=== PATIENT | female | born 1980 | race Caucasian/White ===

== ENCOUNTER 2017-01-24 21:05 | Emergency (ER) | payer OTHER ==
--- NOTE | 2017-01-24 21:26 | ED ---
General Adult HPI - General Chief complaint: Chest Pain Stated complaint: Chest Pain Source: patient, family, RN notes reviewed, old records reviewed Mode of arrival: wheelchair Limitations: no limitations - History of Present Illness Initial comments: This is a 28-year-old female here with severe pain chest pain or bowel pain. History of sudden vomiting syndrome history of vomiting. History of abdominal pain or chest pain. This Dopp is rating the patient's chest. Patient has history of multiple abdominal surgeries. No fevers. No diarrhea. Symptoms happened tonight progressively worsening - Related Data Home Medications Medication Instructions Recorded Confirmed ALPRAZolam [Xanax] 0.5 mg PO TID PRN 01/24/17 01/24/17 Ibuprofen [Motrin] 800 mg PO TID PRN 01/24/17 01/24/17 Allergies Allergy/AdvReac Type Severity Reaction Status Date / Time ceftriaxone [From Rocephin] Allergy Anaphylaxis Verified 01/24/17 21:52 hydromorphone [From Dilaudid] Allergy Anaphylaxis Verified 01/24/17 21:52 Review of Systems ROS Statement: Those systems with pertinent positive or pertinent negative responses have been documented in the HPI. ROS Other: All systems not noted in ROS Statement are negative. Past Medical History Past Medical History: Asthma, Thyroid Disorder Additional Past Medical History / Comment(s): hiatal hernia, Hashimotos History of Any Multi-Drug Resistant Organisms: None Reported Past Surgical History: Section, Cholecystectomy, Tonsillectomy, Tubal Ligation Past Anesthesia/Blood Transfusion Reactions: No Reported Reaction, Motion Sickness, Postoperative Nausea & Vomiting (PONV) Past Psychological History: Anxiety, Depression Smoking Status: Never smoker Past Alcohol Use History: None Reported Additional Past Alcohol Use History / Comment(s): Patient is a lifelong nonsmoker. She denies any medical marijuana, marijuana, street drug use. She lives at home with her and 3 daughters. They're are 2 dogs, 3 cats, one rabbit, 2 guinea pigs, fish and hermit crabs at home which she cares for. She denies any recent travel. Past Drug Use History: None Reported - Past Family History Mother Family Medical History: Cancer General Exam Limitations: no limitations General appearance: alert, in no apparent distress, anxious Head exam: Present: atraumatic, normocephalic, normal inspection Eye exam: Present: normal appearance, PERRL, EOMI. Absent: scleral icterus, conjunctival injection, periorbital swelling ENT exam: Present: normal exam, mucous membranes moist Neck exam: Present: normal inspection. Absent: tenderness, meningismus, lymphadenopathy Respiratory exam: Present: normal lung sounds bilaterally. Absent: respiratory distress, wheezes, rales, rhonchi, stridor Cardiovascular Exam: Present: regular rate, normal rhythm, normal heart sounds. Absent: systolic murmur, diastolic murmur, rubs, gallop, clicks GI/Abdominal exam: Present: soft, normal bowel sounds. Absent: distended, tenderness, guarding, rebound, rigid Extremities exam: Present: normal inspection, full ROM, normal capillary refill. Absent: tenderness, pedal edema, joint swelling, calf tenderness Back exam: Present: normal inspection Neurological exam: Present: alert, oriented X3, CN II-XII intact Psychiatric exam: Present: normal affect, normal mood Skin exam: Present: warm, dry, intact, normal color. Absent: rash Course Vital Signs 01/24/17 01/24/17 21:06 22:01 Temperature 97.4 F L Pulse Rate 81 58 L Respiratory 20 18 Rate Blood Pressure 138/75 125/84 O2 Sat by Pulse 100 99 Oximetry - Reevaluation(s) Reevaluation #1: 01/24/17 22:04 At this point patient does have pain control EKG Findings - EKG Comments: EKG Findings:: EKG shows normal sinus rhythm rate of 66, MA 40, QRS 94, QTC 423 Medical Decision Making - Medical Decision Making 36 female here for evaluation. Patient comes in here for reevaluation.pain chest pain nausea vomiting. Symptoms are improved lab work is normal patient can be discharged home - Lab Data Result diagrams: 01/24/17 21:21 01/24/17 21:21 Lab Results 01/24/17 01/24/17 01/24/17 Range/Units 21:21 21:21 21:21 WBC 8.0 (3.8-10.6) k/uL RBC 4.99 (3.80-5.40) m/uL Hgb 11.6 (11.4-16.0) gm/dL Hct 37.9 (34.0-46.0) % MCV 75.9 L (80.0-100.0) fL MCH 23.4 L (25.0-35.0) pg MCHC 30.8 L (31.0-37.0) g/dL RDW 14.4 (11.5-15.5) % Plt Count 295 (150-450) k/uL Neutrophils % 51 % Lymphocytes % 37 % Monocytes % 6 % Eosinophils % 2 % Basophils % 1 % Neutrophils # 4.1 (1.3-7.7) k/uL Lymphocytes # 3.0 (1.0-4.8) k/uL Monocytes # 0.5 (0-1.0) k/uL Eosinophils # 0.1 (0-0.7) k/uL Basophils # 0.1 (0-0.2) k/uL Hypochromasia Moderate Microcytosis Slight PT (9.0-12.0) sec INR (<1.1) APTT (22.0-30.0) sec D-Dimer (<0.60) mg/L FEU Sodium 143 (137-145) mmol/L Potassium 4.3 (3.5-5.1) mmol/L Chloride 106 (98-107) mmol/L Carbon Dioxide 26 (22-30) mmol/L Anion Gap 11 mmol/L BUN 13 (7-17) mg/dL Creatinine 0.80 (0.52-1.04) mg/dL Est GFR (MDRD) Af Amer >60 (>60 ml/min/1.73 sqM) Est GFR (MDRD) Non-Af >60 (>60 ml/min/1.73 sqM) Glucose 82 (74-99) mg/dL Calcium 9.3 (8.4-10.2) mg/dL Magnesium 2.0 (1.6-2.3) mg/dL Total Bilirubin 0.3 (0.2-1.3) mg/dL AST 17 (14-36) U/L ALT 27 (9-52) U/L Alkaline Phosphatase 68 (38-126) U/L Total Creatine Kinase 77 (30-135) U/L CK-MB (CK-2) 1.0 (0.0-2.4) ng/mL CK-MB (CK-2) Rel Index 1.3 Troponin I <0.012 (0.000-0.034) ng/mL Total Protein 7.2 (6.3-8.2) g/dL Albumin 4.0 (3.5-5.0) g/dL Lipase 174 (23-300) U/L 01/24/17 Range/Units 21:21 WBC (3.8-10.6) k/uL RBC (3.80-5.40) m/uL Hgb (11.4-16.0) gm/dL Hct (34.0-46.0) % MCV (80.0-100.0) fL MCH (25.0-35.0) pg MCHC (31.0-37.0) g/dL RDW (11.5-15.5) % Plt Count (150-450) k/uL Neutrophils % % Lymphocytes % % Monocytes % % Eosinophils % % Basophils % % Neutrophils # (1.3-7.7) k/uL Lymphocytes # (1.0-4.8) k/uL Monocytes # (0-1.0) k/uL Eosinophils # (0-0.7) k/uL Basophils # (0-0.2) k/uL Hypochromasia Microcytosis PT 10.2 (9.0-12.0) sec INR 1.0 (<1.1) APTT 18.7 L (22.0-30.0) sec D-Dimer 0.47 (<0.60) mg/L FEU Sodium (137-145) mmol/L Potassium (3.5-5.1) mmol/L Chloride (98-107) mmol/L Carbon Dioxide (22-30) mmol/L Anion Gap mmol/L BUN (7-17) mg/dL Creatinine (0.52-1.04) mg/dL Est GFR (MDRD) Af Amer (>60 ml/min/1.73 sqM) Est GFR (MDRD) Non-Af (>60 ml/min/1.73 sqM) Glucose (74-99) mg/dL Calcium (8.4-10.2) mg/dL Magnesium (1.6-2.3) mg/dL Total Bilirubin (0.2-1.3) mg/dL AST (14-36) U/L ALT (9-52) U/L Alkaline Phosphatase (38-126) U/L Total Creatine Kinase (30-135) U/L CK-MB (CK-2) (0.0-2.4) ng/mL CK-MB (CK-2) Rel Index Troponin I (0.000-0.034) ng/mL Total Protein (6.3-8.2) g/dL Albumin (3.5-5.0) g/dL Lipase (23-300) U/L - Radiology Data Radiology results: report reviewed (Chest x-ray is negative for acute disease), image reviewed Disposition Clinical Impression: Abdominal pain, Intractable nausea and vomiting Disposition: HOME SELF-CARE Condition: Good Instructions: Abdominal Pain (ED), Acute Nausea and Vomiting (ED) Referrals: Bob Velez III, MD [Primary Care Provider] - 1-2 days
[2017-01-24] MEDS ORDERED: LORazepam 2 MG/ML SYRINGE IV STA (21:39)
[2017-01-24] MEDS ORDERED: HYDROmorphone 2 MG/ML 1 ML SYRINGE IVP STA ×2 (21:39→22:48)
[2017-01-24 21:41] LABS: Basophils # (A) 0.1 k/uL (0-0.2); Basophils % (A) 1 %; CH 23.1; CHCM 30.5; Eosinophils # (A) 0.1 k/uL (0-0.7); Eosinophils % (A) 2 %; HCT 37.9 % (34.0-46.0); HDW 2.34; HGB 11.6 gm/dL (11.4-16.0); Hypochromasia Moderate; Luc # (Auto) 0.26; Luc % (Auto) 3; Lymphocytes % (A) 37 %; MCH 23.4 pg (25.0-35.0); MCHC 30.8 g/dL (31.0-37.0); MCV 75.9 fL (80.0-100.0); Mean Platelet Volume 6.8; Microcytosis Slight; Monocytes # (A) 0.5 k/uL (0-1.0); Monocytes % (A) 6 %; Neutrophils # (A) 4.1 k/uL (1.3-7.7); Neutrophils % (A) 51 %; RBC 4.99 m/uL (3.80-5.40); RDW 14.4 % (11.5-15.5); WBC (Perox) 8.24
[2017-01-24 21:47] LABS: ALT 27 U/L (9-52); AST 17 U/L (14-36); Alkaline Phosphatase 68 U/L (38-126); Anion Gap 11 mmol/L; Blood Urea Nitrogen 13 mg/dL (7-17); Calcium 9.3 mg/dL (8.4-10.2); Carbon Dioxide 26 mmol/L (22-30); Chloride 106 mmol/L (98-107); Glucose 82 mg/dL (74-99); Non-African American GFR(MDRD) >60 (>60 ml/min/1.73 sqM); Potassium 4.3 mmol/L (3.5-5.1); Sodium 143 mmol/L (137-145); Total Bilirubin 0.3 mg/dL (0.2-1.3); Total Protein 7.2 g/dL (6.3-8.2)
--- NOTE | 2017-01-24 21:50 | XR ---
EXAMINATION TYPE: XR chest 2V DATE OF EXAM: 01/24/2017 9:44 PM COMPARISON: 07/04/2015 HISTORY: Chest pain TECHNIQUE: Frontal and lateral views of the chest are obtained. FINDINGS: There is a large hiatal hernia. Lungs are clear. There is no heart failure. There are no h ilar masses. There is no pleural effusion. IMPRESSION: Large hiatal hernia. No active cardiopulmonary disease. No change.
[2017-01-24 21:52] LABS: Prothrombin Time 10.2 sec (9.0-12.0)
[2017-01-24 21:59] LABS: Partial Thromboplastin Time 18.7 sec (22.0-30.0)
[2017-01-24 22:02] LABS: Creatine Kinase 77 U/L (30-135)
[2017-01-24 22:13] LABS: Troponin I <0.012 ng/mL (0.000-0.034)
[2017-01-24] MEDS ORDERED: HYDROmorphone 1 MG/ML 1 ML SYRINGE IVP STA (22:48)
[2017-01-24] MEDS ORDERED: NALOXONE 0.4 MG/ML 1 ML VIAL IV STA (22:49)
[2017-01-24] MEDS ORDERED: ONDANSETRON 4 MG/2 ML VIAL IVP STA (23:33)
[2017-01-25] MEDS ORDERED: diphenhydrAMINE 50 MG/ML 1 ML VIAL IVP STA (00:07)
[2017-01-25 00:39] VITALS: BP 96/54; PULSE 61; RESP 18; TEMP 98
== END 2017-01-25 00:38 | disposition home or self-care (01) ==
LOC: EC 21:05
DX: R11.2 Nausea with vomiting, unspecified (principal); R10.9 Unspecified abdominal pain; R07.9 Chest pain, unspecified; Z88.1 Allergy status to other antibiotic agents; Z88.5 Allergy status to narcotic agent
CPT/HCPCS: 36415; 93005; 85379; 80053; 82550; 82553; 83690; 83735; 84484; 85025; 85610; 85730; 71020; 99285; 96374; 96375 ×4; 96376; J2060; J1170; J1200; J2310; J2405

== ENCOUNTER 2017-06-03 10:02 | Day surgery (SDC) | payer OTHER ==
[2017-06-01 13:28] VITALS: BMI 35.5
[~2017-06-03 10:02] MED LIST: LACTATED RINGERS 1,000 ML IV SCH
[2017-06-03 10:28] VITALS: RESP 16; TEMP 99
[2017-06-03] MEDS ORDERED: LIDOCAINE 1% 20 ML VIAL (10MG/ML) FOR IV START INTRADERMA ONE (10:32)
[2017-06-03] MEDS ORDERED: ONDANSETRON 4 MG/2 ML VIAL IVP ONE (10:35)
[2017-06-03] MEDS ORDERED: LIDOCAINE 1% INJ 10MG/ML (20 ML MDV) ONE (10:58)
[2017-06-03] MEDS ORDERED: PROPOFOL 10 MG/ML 20 ML VIAL IV ONE (10:58)
--- NOTE | 2017-06-03 11:29 | P.PCN ---
Date of Procedure: 06/03/17 Procedure(s) Performed: Procedure: Esophagogastroduodenoscopy and biopsy. Preoperative diagnosis: Chronic reflux symptoms and left upper quadrant abdominal pains. Postoperative diagnosis: 1. Moderately sized hiatal hernia with no obvious esophagitis or complicated reflux disease. 2. Mild antral gastritis. 3. Multiple biopsies obtained from the duodenum, antrum and esophagus. Preparation sedation: Were provided by anesthesia. Brief clinical history: The patient is a 37-year-old female who is referred for this evaluation because of chronic reflux symptoms and left upper quadrant abdominal pain. The patient has chronic reflux symptoms and has been on treatment for several years. She had 2 prior upper endoscopies 3 and 6 years ago. She has no alarm symptoms. This evaluation is requested to assess the degree of her esophagitis and rule out complicated reflux disease or other pathology. Procedure: With the patient on her left lateral decubitus position and after informed consent and adequate sedation, I passed the Olympus-GIF 160 video upper endoscope through the cricopharyngeus down the esophagus. GE junction was around 36 cm from the incisors and there was a moderately sized hiatal hernia with a paraesophageal component. The esophagus did not show any definite esophagitis. There were no strictures or Burk's esophagus. The endoscope was then passed into the stomach which was insufflated with air and inspected in detail including the retroflex view in the cardia. There was some mottling and erythema in the antrum but no ulcers or erosions. Pyloric channel , duodenal bulb, post bulbar area and descending duodenum appeared within normal limits. Because of her symptoms, I obtained biopsies from the duodenum, antrum and esophagus then the endoscope was withdrawn. The patient tolerated the procedure well. Plan: The patient was reassured. Will await biopsy results. She will follow- up with you as planned and I would be happy to see in follow-up if her symptoms persist. I am not certain of the component of her symptoms that could be related to her hiatal hernia and into the thoracic portion of of her stomach.
[2017-06-03 11:41] VITALS: BP 92/55; PULSE 57
== END 2017-06-03 12:28 | disposition home or self-care (01) ==
LOC: ORWHC2ENDO 10:02
DX: K29.50 Unspecified chronic gastritis without bleeding (principal); K44.9 Diaphragmatic hernia without obstruction or gangrene; K21.0 Gastro-esophageal reflux disease with esophagitis; J45.909 Unspecified asthma, uncomplicated; Z79.899 Other long term (current) drug therapy; Z88.1 Allergy status to other antibiotic agents
CPT/HCPCS: 81025; 88305; 88342; 43239; J2405; J2001; J2704

== ENCOUNTER 2018-11-14 22:24 | Emergency (ER) | payer BC, OTHER ==
[2018-11-14 23:40] LABS: Basophils % (A) 1 %; Eosinophils # (A) 0.1 k/uL (0-0.7); Eosinophils % (A) 2 %; HCT 37.8 % (34.0-46.0); HGB 11.9 gm/dL (11.4-16.0); Hypochromasia Slight; Lymphocytes # (A) 2.3 k/uL (1.0-4.8); Lymphocytes % (A) 34 %; MCH 24.4 pg (25.0-35.0); MCHC 31.6 g/dL (31.0-37.0); MCV 77.1 fL (80.0-100.0); Mean Platelet Volume 5.9; Monocytes # (A) 0.4 k/uL (0-1.0); Monocytes % (A) 6 %; Neutrophils # (A) 3.8 k/uL (1.3-7.7); Neutrophils % (A) 56 %; Platelet Count 246 k/uL (150-450); RDW 14.1 % (11.5-15.5); WBC 6.9 k/uL (3.8-10.6)
[2018-11-14 23:47] LABS: ALT 29 U/L (9-52); AST 20 U/L (14-36); Albumin 3.8 g/dL (3.5-5.0); Alkaline Phosphatase 59 U/L (38-126); Anion Gap 9 mmol/L; Blood Urea Nitrogen 15 mg/dL (7-17); Calcium 9.5 mg/dL (8.4-10.2); Carbon Dioxide 24 mmol/L (22-30); Chloride 107 mmol/L (98-107); Glucose 82 mg/dL (74-99); Magnesium 1.8 mg/dL (1.6-2.3); Sodium 140 mmol/L (137-145); Total Bilirubin 0.3 mg/dL (0.2-1.3); Total Protein 6.9 g/dL (6.3-8.2)
[2018-11-14 23:55] LABS: D-Dimer 0.3 mg/L FEU (<0.60); INR 0.9 (<1.2); Partial Thromboplastin Time 23.3 sec (22.0-30.0)
--- NOTE | 2018-11-15 00:05 | ED ---
Chest Pain HPI - General Chief Complaint: Chest Pain Stated Complaint: Chest pain & SOB Time Seen by Provider: 11/14/18 23:02 Source: patient Mode of arrival: ambulatory Limitations: no limitations - History of Present Illness Initial Comments: This patient is a 38-year-old woman who presents to be evaluated for substernal chest pain. Patient states that he is an aching pain, and feels like someone had struck her. She states pain is constant, moderate intensity. Pain does get worse with movements. No relieving factors. No anginal symptoms associated with it. MD Complaint: chest pain Onset/Timin -: hour(s) Onset: during rest Pain Location: substernal Pain Radiation: none Severity: moderate Quality: aching Consistency: constant Improves With: nothing Worsens With: nothing Treatments Prior to Arrival: none - Related Data Home Medications Medication Instructions Recorded Confirmed Amitriptyline HCl [Elavil] 50 mg PO HS 11/14/18 11/14/18 Gabapentin [Neurontin] 300 mg PO DAILY 11/14/18 11/14/18 Hydroxychloroquine Sulfate 200 mg PO DAILY 11/14/18 11/14/18 [Plaquenil] Ibuprofen [Motrin] 800 mg PO BID 11/14/18 11/14/18 chlordiazePOXIDE/CLIDINIUM BR 1 cap PO TID 11/14/18 11/14/18 [Librax] Allergies Allergy/AdvReac Type Severity Reaction Status Date / Time ceftriaxone [From Rocephin] Allergy Anaphylaxis Verified 11/14/18 22:56 Review of Systems ROS Statement: Those systems with pertinent positive or pertinent negative responses have been documented in the HPI. ROS Other: All systems not noted in ROS Statement are negative. Constitutional: Denies: fever, chills Respiratory: Denies: cough, dyspnea Cardiovascular: Reports: chest pain. Denies: palpitations, dyspnea on exertion, orthopnea, edema, syncope Gastrointestinal: Denies: abdominal pain, vomiting, diarrhea Genitourinary: Denies: dysuria, hematuria Musculoskeletal: Denies: back pain Skin: Denies: rash Neurological: Denies: headache, weakness, numbness EKG Findings - EKG Comments: EKG Findings:: Possible old lateral infarct. - EKG Results: EKG: interpreted by SALEEM, sinus rhythm (Rate 83 bpm), normal axis, normal ST/T Past Medical History Past Medical History: Asthma, Thyroid Disorder Additional Past Medical History / Comment(s): hiatal hernia, Hashimotos History of Any Multi-Drug Resistant Organisms: None Reported Past Surgical History: Section, Cholecystectomy, Tonsillectomy, Tubal Ligation Past Anesthesia/Blood Transfusion Reactions: Motion Sickness, Postoperative Nausea & Vomiting (PONV) Past Psychological History: Anxiety, Depression Smoking Status: Never smoker Past Alcohol Use History: None Reported Past Drug Use History: None Reported - Past Family History Mother Family Medical History: Cancer General Exam Limitations: no limitations General appearance: alert, in no apparent distress Head exam: Present: atraumatic, normocephalic Eye exam: Present: normal appearance. Absent: scleral icterus, conjunctival injection ENT exam: Present: normal oropharynx Neck exam: Present: normal inspection, full ROM. Absent: tenderness, meningismus Respiratory exam: Present: normal lung sounds bilaterally, chest wall tenderness. Absent: respiratory distress, wheezes, rales, rhonchi, stridor Cardiovascular Exam: Present: regular rate, normal rhythm, normal heart sounds. Absent: systolic murmur, diastolic murmur, rubs, gallop GI/Abdominal exam: Present: soft. Absent: distended, tenderness, guarding, rebound, rigid Extremities exam: Present: normal inspection, normal capillary refill. Absent: pedal edema, calf tenderness Back exam: Present: normal inspection. Absent: CVA tenderness (R), CVA tenderness (L) Neurological exam: Present: alert Skin exam: Present: warm, dry, intact, normal color. Absent: rash Course Vital Signs 11/14/18 11/15/18 11/15/18 22:28 00:08 01:13 Temperature 97.9 F Pulse Rate 88 75 88 Respiratory 18 16 18 Rate Blood Pressure 109/79 106/70 117/87 O2 Sat by Pulse 100 99 99 Oximetry 11/15/18 01:50 Temperature 98.5 F Pulse Rate 83 Respiratory 17 Rate Blood Pressure 114/85 O2 Sat by Pulse 100 Oximetry Disposition Clinical Impression: Chest pain, Hiatal hernia Disposition: HOME SELF-CARE Condition: Good Instructions (If sedation given, give patient instructions): Chest Pain (ED) Is patient prescribed a controlled substance at d/c from ED?: No Referrals: Bob Velez III, MD [Primary Care Provider] - 1-2 days
--- NOTE | 2018-11-15 00:52 | XR ---
History: ITS.REASON XR Reason: Chest Pain Exam: XR CXR 2 VIEWS Comparison: 01/24/2017 FINDINGS: The lungs are clear. Large hiatal hernia containing air-fluid level again noted. The cardiac silhouette is within limits for size. Status post apparent cholecystectomy again noted. The visualized osseous structures appear within limits. IMPRESSION: No evidence of acute disease. Large hiatal hernia containing air-fluid level again noted. Status post apparent cholecystectomy again noted.
[2018-11-15 01:52] VITALS: BP 114/85; PULSE 83; RESP 17; TEMP 98.5
== END 2018-11-15 01:51 | disposition home or self-care (01) ==
LOC: EC 22:24
DX: R07.2 Precordial pain (principal); K44.9 Diaphragmatic hernia without obstruction or gangrene; F32.9 Major depressive disorder, single episode, unspecified; F41.9 Anxiety disorder, unspecified; Z79.1 Long term (current) use of non-steroidal anti-inflammatories (NSAID); Z79.899 Other long term (current) drug therapy; Z88.1 Allergy status to other antibiotic agents; Z90.49 Acquired absence of other specified parts of digestive tract
CPT/HCPCS: 36415; 71046; 80053; 83735; 84484; 85025; 85379; 85610; 85730; 99285

== ENCOUNTER 2019-09-27 10:34 | Day surgery (SDC) | payer BC ==
[2019-09-26 08:28] VITALS: BMI 38.7
[~2019-09-27 10:34] MED LIST changes: +LIDOCAINE 1% 20 ML VIAL (10MG/ML) FOR IV START INTRADERMA PRN
[2019-09-27 10:51] VITALS: RESP 16; TEMP 98.5
[2019-09-27] MEDS ORDERED: GLYCOPYRROLATE 0.2 MG/ML 2 ML VIAL ONE (11:37)
[2019-09-27] MEDS ORDERED: LIDOCAINE 1% INJ 10MG/ML (20 ML MDV) ONE (11:37)
[2019-09-27] MEDS ORDERED: fentaNYL (PF) 50 MCG/ML 2 ML AMP ONE (11:37)
[2019-09-27] MEDS ORDERED: PROPOFOL 10 MG/ML 20 ML VIAL IV ONE (11:37)
[2019-09-27] MEDS ORDERED: MIDAZOLAM 2 MG/2 ML VIAL ONE (11:37)
--- NOTE | 2019-09-27 11:44 | P.GSHP ---
History of Present Illness H&P Date: 09/27/19 Chief Complaint: Dysphasia, iron deficiency anemia, GERD Patient or today for upper and lower endoscopy. Patient with history of chronic reflux and intermittent dysphagia for the last 1 year. Patient told she was deficient anemic. He was told she needed upper and lower endoscopy. Denies rectal bleeding or melena. No family history of colon cancer Past Medical History Past Medical History: Asthma, Fibromyalgia, Osteoarthritis (OA), Rheumatoid Arthritis (RA), Thyroid Disorder Additional Past Medical History / Comment(s): Hashimotos, anemia, Hx of sepsis., stomach pains. History of Any Multi-Drug Resistant Organisms: None Reported Past Surgical History: Section, Cholecystectomy, Tonsillectomy, Tubal Ligation Past Anesthesia/Blood Transfusion Reactions: No Reported Reaction, Motion Sickness Past Psychological History: Anxiety, Depression Smoking Status: Never smoker Past Alcohol Use History: None Reported Additional Past Alcohol Use History / Comment(s): . Past Drug Use History: None Reported - Past Family History Mother Family Medical History: Cancer Additional Family Medical History / Comment(s): breast & skin cancer Medications and Allergies Home Medications Medication Instructions Recorded Confirmed Type Amitriptyline HCl [Elavil] 50 mg PO DAILY 11/14/18 09/27/19 History Gabapentin [Neurontin] 300 mg PO HS 11/14/18 09/27/19 History Hydroxychloroquine Sulfate 200 mg PO BID 11/14/18 09/27/19 History [Plaquenil] Ibuprofen [Motrin] 800 mg PO DAILY 11/14/18 09/27/19 History Albuterol Inhaler [Ventolin Hfa 1 - 2 puff INHALATION RT-Q6H PRN 09/26/19 09/27/19 History Inhaler] DULoxetine HCL [Cymbalta] 30 mg PO BID 09/26/19 09/27/19 History Ergocalciferol [Vitamin D2] 50,000 unit PO Q7D 09/26/19 09/27/19 History Iron Supplement 1 tab PO DAILY 09/26/19 09/27/19 History Allergies Allergy/AdvReac Type Severity Reaction Status Date / Time ceftriaxone [From Rocephin] Allergy Anaphylaxis Verified 09/26/19 08:08 Surgical - Exam Vital Signs Temp Pulse Resp BP Pulse Ox 98.5 F 97 16 140/79 100 09/27/19 10:49 09/27/19 10:49 09/27/19 10:49 09/27/19 10:49 09/27/19 10:49 Physical exam: General: Well-developed, well-nourished HEENT: Normocephalic, sclerae nonicteric Abdomen: Nontender, nondistended Extremities: No edema Neuro: Alert and oriented Assessment and Plan (1) Iron deficiency anemia Narrative/Plan: Will proceed with upper and lower endoscopy Current Visit: Yes Status: Acute Code(s): D50.9 - IRON DEFICIENCY ANEMIA, UNSPECIFIED SNOMED Code(s): 66217183
--- NOTE | 2019-09-27 12:09 | P.PCN ---
Date of Procedure: 09/27/19 Procedure(s) Performed: PREOPERATIVE DIAGNOSIS: GERD, dysphagia, iron deficiency anemia POSTOPERATIVE DIAGNOSIS: Gastritis, moderate to large sized hiatal hernia, normal colon PROCEDURE: 1. EGD with biopsy 2. Colonoscopy ANESTHESIA: MAC SURGEON: José Torres M.D. SPECIMENS: Antrum ENDOSCOPIC PROCEDURE: The patient was on the endoscopy table in the left decubitus position. The Olympus gastroscope was inserted into the oropharynx and passed under direct visualization to the region of the third portion of the duodenum. From that point the scope was slowly withdrawn inspecting all surfaces carefully. There were no neoplastic inflammatory or polypoid lesions throughout the duodenum. The pylorus was widely patent. The stomach was carefully inspected. There was mild gastritis present. A biopsy of the antrum took place to rule out H. pylori. Retroflexion revealed a moderate to large sized hiatal hernia. The diaphragmatic hiatus was present at 40 cm wall of the GE junction was present at 35 cm. I would estimate 30-40% of the stomach was above the diaphragm. There was mild inflammation in the hernia itself and may have been the source of anemia. The esophagus was then carefully examined. There were no neoplastic inflammatory or polypoid lesions throughout the visualized esophagus. The patient was kept on the endoscopy table in the left decubitus position. The Olympus colonoscope was inserted into the anus and passed under direct visualization to the base of the cecum. The appendiceal orifice was visualized. From that point the scope was slowly withdrawn inspecting all surfaces carefully. There were no neoplastic inflammatory or polypoid lesions throughout the cecum, ascending, transverse, descending, sigmoid and rectum. There was no visible diverticulosis noted. Digital rectal examination was normal. The patient was taken to the recovery room in stable condition per anesthesia guidelines. RECOMMENDATIONS: We'll discuss endoscopic findings with the patient. Patient may benefit from repair hiatal hernia at this point. Await biopsy results. Iron deficiency could be on the basis of this large hernia.
[2019-09-27 12:29] VITALS: BP 122/82; PULSE 81
== END 2019-09-27 12:57 | disposition home or self-care (01) ==
LOC: ORWHC2ENDO 10:34
PROVIDERS: ATTEND Surgery
DX: K29.50 Unspecified chronic gastritis without bleeding (principal); D50.9 Iron deficiency anemia, unspecified; K21.9 Gastro-esophageal reflux disease without esophagitis; K44.9 Diaphragmatic hernia without obstruction or gangrene; M06.9 Rheumatoid arthritis, unspecified; M79.7 Fibromyalgia; J45.909 Unspecified asthma, uncomplicated; F32.9 Major depressive disorder, single episode, unspecified; F39 Unspecified mood [affective] disorder; M19.90 Unspecified osteoarthritis, unspecified site; E07.9 Disorder of thyroid, unspecified; F41.9 Anxiety disorder, unspecified; Z79.1 Long term (current) use of non-steroidal anti-inflammatories (NSAID); Z79.899 Other long term (current) drug therapy; Z88.1 Allergy status to other antibiotic agents; Z90.49 Acquired absence of other specified parts of digestive tract; Z98.51 Tubal ligation status; Z90.89 Acquired absence of other organs; Z86.19 Personal history of other infectious and parasitic diseases; Z80.3 Family history of malignant neoplasm of breast; Z80.8 Family history of malignant neoplasm of other organs or systems
CPT/HCPCS: 81025; 88305; 45378; 43239; J2250; J2001; J3010; J2704

== ENCOUNTER → 2019-10-21 | Outpatient (CLI) | payer BC ==
--- NOTE | 2019-10-22 19:13 | CT ---
EXAMINATION TYPE: CT chest wo con DATE OF EXAM: 10/21/2019 COMPARISON: None HISTORY: Hiatal hernia CT DLP: 698.[address] of the chest was performed with lung and mediastinal window settings submitted. The la ck of contrast limits evaluation of the vascular, mediastinal and parenchymal structures including th e upper abdomen. LUNGS: The lungs are clear and free of infiltrate. No atelectasis. No pulmonary nodule or mass is de tected. No pleural effusion. No CT evidence of interstitial lung disease. MEDIASTINUM/RUY: Thoracic aorta is of normal caliber with limited evaluation given lack of contrast . The heart is not enlarged. No evidence for mediastinal mass. No lymph nodes greater than 1cm. UPPER ABDOMEN: The stomach is virtually entirely intrathoracic in location. OTHER: No significant other abnormality. IMPRESSION: 1. The stomach is virtually entirely intrathoracic in location.
== END ==
LOC: RADCTMAIN 13:31
PROVIDERS: ATTEND Surgery
DX: K44.9 Diaphragmatic hernia without obstruction or gangrene (principal)
CPT/HCPCS: 71250

== ENCOUNTER 2019-12-21 12:22 | Observation (INO) | payer BC ==
[2019-12-21] MEDS ORDERED: ASPIRIN 81 MG PO STA (12:58)
[2019-12-21] MEDS ORDERED: SODIUM CHLORIDE 0.9% 1,000 ML IV STA (12:58)
--- NOTE | 2019-12-21 13:22 | ED ---
General Adult HPI - General Chief complaint: Shortness of Breath Stated complaint: shortness of breath Time Seen by Provider: 12/21/19 12:36 Source: patient, RN notes reviewed, old records reviewed Mode of arrival: ambulatory Limitations: no limitations - History of Present Illness Initial comments: 39-year-old female patient presents to ED for chief complaint of approximately 3 weeks of chest pressure, shortness of breath, very mild coughing. Patient r eports that she has been quite sedentary over this timeframe. Mostly sitting in her chair. Patient reports that when she stands up and exerts herself she becomes short of breath her heart rate becomes elevated at her pulse oximetry level drops reported on the 80s. Patient reports that she has a pulse oximeter at home which she monitors her heart rate and blood oxygenation with. Patient states that her chest pressure substernal in nature, states that it has been persistent and is getting worse with exertion. Denies any other complaints. Denies any prior history of blood clots or cardiac issues. Systemic: Pt denies fatigue, fever/chills, rash. Pt denies weakness, night sweats, weight loss. Neuro: Pt denies headache, visual disturbances, syncope or pre-syncope. HEENT: Pt denies ocular discharge or irritation, otalgia, rhinorrhea, pharyngitis or notable lymphadenopathy. Cardiopulmonary: Pt denies heart palpitations, dyspnea on exertion. Abdominal/GI: Pt denies abdominal pain, n/v/d. : Pt denies dysuria, burning w/ urination, frequency/urgency. Denies new onset urinary or bowel incontinence. MSK: Pt denies myalgia, loss of strength or function in extremities. Neuro: Pt denies new onset weakness, paresthesias. - Related Data Home Medications Medication Instructions Recorded Confirmed Amitriptyline HCl [Elavil] 50 mg PO HS 11/14/18 12/21/19 Gabapentin [Neurontin] 300 mg PO TID PRN 11/14/18 12/21/19 Hydroxychloroquine Sulfate 200 mg PO BID 11/14/18 12/21/19 [Plaquenil] Ibuprofen [Motrin] 800 mg PO DAILY 11/14/18 12/21/19 Albuterol Inhaler (Bulk) [Ventolin 2 puff INHALATION RT-Q6H PRN 09/26/19 12/21/19 Hfa Inhaler] DULoxetine HCL [Cymbalta] 30 mg PO BID 09/26/19 12/21/19 chlordiazePOXIDE/CLIDINIUM BR 1 cap PO AC-TID 12/21/19 12/21/19 [Librax] Allergies Allergy/AdvReac Type Severity Reaction Status Date / Time ceftriaxone [From Rocephin] Allergy Anaphylaxis Verified 12/21/19 14:39 Review of Systems ROS Statement: Those systems with pertinent positive or pertinent negative responses have been documented in the HPI. ROS Other: All systems not noted in ROS Statement are negative. Past Medical History Past Medical History: Asthma, Fibromyalgia, Osteoarthritis (OA), Rheumatoid Arthritis (RA), Thyroid Disorder Additional Past Medical History / Comment(s): Hashimotos, anemia, Hx of sepsis., stomach pains. History of Any Multi-Drug Resistant Organisms: None Reported Past Surgical History: Section, Cholecystectomy, Tonsillectomy, Tubal Ligation Past Anesthesia/Blood Transfusion Reactions: No Reported Reaction, Motion Sickness Past Psychological History: Anxiety, Depression Smoking Status: Never smoker Past Alcohol Use History: None Reported Past Drug Use History: None Reported - Past Family History Mother Family Medical History: Cancer Additional Family Medical History / Comment(s): breast & skin cancer General Exam - General Exam Comments Initial Comments: Constitutional: NAD, AOX3, Pt has pleasant affect. HEENT: NC/AT, trachea midline, neck supple, no lymphadenopathy. Posterior pharynx non erythematous, without exudates. External ears appear normal, without discharge. Mucous membranes moist. Eyes PERRLA, EOM intact. There is no scleral icterus. No pallor noted. Cardiopulmonary: RRR, no murmurs, rubs or gallops, no JVD noted. Lungs CTAB in anterior and posterior lei. No peripheral edema. Abdominal exam: Abdomen soft and non-distended. Abdomen non-tender to palpation in all 4 quadrants. Bowel sounds active in LLQ. No hepatosplenomegaly. No ecch ymosis Neuro: CN II-XII grossly intact. No nuchal rigidity. No raccon eyes, no novak sign, no hemotympanum. No cervical spinal tenderness. MSK: No posterior calf tenderness bilaterally, homans sign negative bilaterally. Posterior tibialis and radial pulse +2 bilaterally. Sensation intact in upper and lower extremities. Full active ROM in upper and lower extremities, 5/5 stregnth. Limitations: no limitations Course Vital Signs 12/21/19 12/21/19 12:24 16:02 Temperature 98.5 F Pulse Rate 101 H 78 Respiratory 18 18 Rate Blood Pressure 117/90 116/70 O2 Sat by Pulse 96 98 Oximetry Medical Decision Making - Medical Decision Making 39-year-old female patient presents to ED for chief complaint of approximately 3 weeks of chest pressure, shortness of breath, very mild coughing. Patient reports that she has been quite sedentary over this timeframe. Mostly sitting in her chair. Patient reports that when she stands up and exerts herself she becomes short of breath her heart rate becomes elevated at her pulse oximetry level drops reported on the 80s. Patient reports that she has a pulse oximeter at home which she monitors her heart rate and blood oxygenation with. Patient states that her chest pressure substernal in nature, states that it has been persistent and is getting worse with exertion. Denies any other complaints. Denies any prior history of blood clots or cardiac issues. Patient also has are stable, afebrile. EKG is nonischemic. Laboratory investigations are obtained, reported negative, d-dimer negative, coronavirus PCR is negative. Chest x-ray doesn't display lactational hernia projector behind the heart. Upon repeat evaluation patient reports that pain has resolved. Patient will be admitted for creatinine evaluation. Case discussed with Dr. Hughes. - Lab Data Result diagrams: 12/21/19 13:34 12/21/19 13:34 Lab Results 12/21/19 12/21/19 12/21/19 Range/Units 13:34 13:34 13:34 WBC 5.7 (3.8-10.6) k/uL RBC 5.34 (3.80-5.40) m/uL Hgb 14.5 (11.4-16.0) gm/dL Hct 45.0 (34.0-46.0) % MCV 84.2 (80.0-100.0) fL MCH 27.1 (25.0-35.0) pg MCHC 32.2 (31.0-37.0) g/dL RDW 13.1 (11.5-15.5) % Plt Count 237 (150-450) k/uL Neutrophils % 64 % Lymphocytes % 26 % Monocytes % 6 % Eosinophils % 2 % Basophils % 1 % Neutrophils # 3.6 (1.3-7.7) k/uL Lymphocytes # 1.5 (1.0-4.8) k/uL Monocytes # 0.3 (0-1.0) k/uL Eosinophils # 0.1 (0-0.7) k/uL Basophils # 0.1 (0-0.2) k/uL PT 10.1 (9.0-12.0) sec INR 1.0 (<1.2) APTT 22.7 (22.0-30.0) sec D-Dimer 0.48 (<0.60) mg/L FEU Sodium 138 (137-145) mmol/L Potassium 4.1 (3.5-5.1) mmol/L Chloride 104 (98-107) mmol/L Carbon Dioxide 28 (22-30) mmol/L Anion Gap 6 mmol/L BUN 10 (7-17) mg/dL Creatinine 0.69 (0.52-1.04) mg/dL Est GFR (CKD-EPI)AfAm >90 (>60 ml/min/1.73 sqM) Est GFR (CKD-EPI)NonAf >90 (>60 ml/min/1.73 sqM) Glucose 87 (74-99) mg/dL Calcium 8.9 (8.4-10.2) mg/dL Magnesium 1.9 (1.6-2.3) mg/dL Total Bilirubin 0.3 (0.2-1.3) mg/dL AST 19 (14-36) U/L ALT 17 (4-34) U/L Alkaline Phosphatase 56 (38-126) U/L Troponin I (0.000-0.034) ng/mL NT-Pro-B Natriuret Pep pg/mL Total Protein 6.7 (6.3-8.2) g/dL Albumin 3.8 (3.5-5.0) g/dL Urine Color Urine Appearance (Clear) Urine pH (5.0-8.0) Ur Specific [place] (1.001-1.035) Urine Protein (Negative) Urine Glucose (UA) (Negative) Urine Ketones (Negative) Urine Blood (Negative) Urine Nitrite (Negative) Urine Bilirubin (Negative) Urine Urobilinogen (<2.0) mg/dL Ur Leukocyte Esterase (Negative) Urine WBC (0-5) /hpf Ur Squamous Epith Cells (0-4) /hpf Urine Bacteria (None) /hpf Urine Mucus (None) /hpf Coronavirus (PCR) (Not Detectd) 12/21/19 12/21/19 12/21/19 Range/Units 13:34 13:34 13:34 WBC (3.8-10.6) k/uL RBC (3.80-5.40) m/uL Hgb (11.4-16.0) gm/dL Hct (34.0-46.0) % MCV (80.0-100.0) fL MCH (25.0-35.0) pg MCHC (31.0-37.0) g/dL RDW (11.5-15.5) % Plt Count (150-450) k/uL Neutrophils % % Lymphocytes % % Monocytes % % Eosinophils % % Basophils % % Neutrophils # (1.3-7.7) k/uL Lymphocytes # (1.0-4.8) k/uL Monocytes # (0-1.0) k/uL Eosinophils # (0-0.7) k/uL Basophils # (0-0.2) k/uL PT (9.0-12.0) sec INR (<1.2) APTT (22.0-30.0) sec D-Dimer (<0.60) mg/L FEU Sodium (137-145) mmol/L Potassium (3.5-5.1) mmol/L Chloride (98-107) mmol/L Carbon Dioxide (22-30) mmol/L Anion Gap mmol/L BUN (7-17) mg/dL Creatinine (0.52-1.04) mg/dL Est GFR (CKD-EPI)AfAm (>60 ml/min/1.73 sqM) Est GFR (CKD-EPI)NonAf (>60 ml/min/1.73 sqM) Glucose (74-99) mg/dL Calcium (8.4-10.2) mg/dL Magnesium (1.6-2.3) mg/dL Total Bilirubin (0.2-1.3) mg/dL AST (14-36) U/L ALT (4-34) U/L Alkaline Phosphatase (38-126) U/L Troponin I <0.012 (0.000-0.034) ng/mL NT-Pro-B Natriuret Pep 28 pg/mL Total Protein (6.3-8.2) g/dL Albumin (3.5-5.0) g/dL Urine Color Yellow Urine Appearance Cloudy H (Clear) Urine pH 5.5 (5.0-8.0) Ur Specific [place] 1.029 (1.001-1.035) Urine Protein 1+ H (Negative) Urine Glucose (UA) Negative (Negative) Urine Ketones Negative (Negative) Urine Blood Negative (Negative) Urine Nitrite Negative (Negative) Urine Bilirubin Negative (Negative) Urine Urobilinogen 2.0 (<2.0) mg/dL Ur Leukocyte Esterase Negative (Negative) Urine WBC 3 (0-5) /hpf Ur Squamous Epith Cells 1 (0-4) /hpf Urine Bacteria Occasional H (None) /hpf Urine Mucus Many H (None) /hpf Coronavirus (PCR) (Not Detectd) 12/21/19 Range/Units 13:50 WBC (3.8-10.6) k/uL RBC (3.80-5.40) m/uL Hgb (11.4-16.0) gm/dL Hct (34.0-46.0) % MCV (80.0-100.0) fL MCH (25.0-35.0) pg MCHC (31.0-37.0) g/dL RDW (11.5-15.5) % Plt Count (150-450) k/uL Neutrophils % % Lymphocytes % % Monocytes % % Eosinophils % % Basophils % % Neutrophils # (1.3-7.7) k/uL Lymphocytes # (1.0-4.8) k/uL Monocytes # (0-1.0) k/uL Eosinophils # (0-0.7) k/uL Basophils # (0-0.2) k/uL PT (9.0-12.0) sec INR (<1.2) APTT (22.0-30.0) sec D-Dimer (<0.60) mg/L FEU Sodium (137-145) mmol/L Potassium (3.5-5.1) mmol/L Chloride (98-107) mmol/L Carbon Dioxide (22-30) mmol/L Anion Gap mmol/L BUN (7-17) mg/dL Creatinine (0.52-1.04) mg/dL Est GFR (CKD-EPI)AfAm (>60 ml/min/1.73 sqM) Est GFR (CKD-EPI)NonAf (>60 ml/min/1.73 sqM) Glucose (74-99) mg/dL Calcium (8.4-10.2) mg/dL Magnesium (1.6-2.3) mg/dL Total Bilirubin (0.2-1.3) mg/dL AST (14-36) U/L ALT (4-34) U/L Alkaline Phosphatase (38-126) U/L Troponin I (0.000-0.034) ng/mL NT-Pro-B Natriuret Pep pg/mL Total Protein (6.3-8.2) g/dL Albumin (3.5-5.0) g/dL Urine Color Urine Appearance (Clear) Urine pH (5.0-8.0) Ur Specific [place] (1.001-1.035) Urine Protein (Negative) Urine Glucose (UA) (Negative) Urine Ketones (Negative) Urine Blood (Negative) Urine Nitrite (Negative) Urine Bilirubin (Negative) Urine Urobilinogen (<2.0) mg/dL Ur Leukocyte Esterase (Negative) Urine WBC (0-5) /hpf Ur Squamous Epith Cells (0-4) /hpf Urine Bacteria (None) /hpf Urine Mucus (None) /hpf Coronavirus (PCR) Not Detected (Not Detectd) - EKG Data -: EKG Interpreted by Me (and Dr. Hughes ) EKG Comments: Ventricular rate 78, when necessary for 144, QRS 104, QT/QTC 392/446. Normal sensory rhythm, normal EKG, no concern for acute ischemia. Disposition Clinical Impression: Chest pain Disposition: ADMITTED IP TO THIS HOSP Condition: Serious Is patient prescribed a controlled substance at d/c from ED?: No Referrals: Nicole Torres MD [Primary Care Provider] - 1-2 days
--- NOTE | 2019-12-21 13:44 | XR ---
EXAMINATION TYPE: XR chest 1V portable DATE OF EXAM: 12/21/2019 Comparison: 11/15/2018 Clinical History: 39-year-old female chest pain Findings: Heart normal size. Aorta and pulmonary vasculature within normal limits. Large hiatal hernia with air -fluid level projecting behind the heart. Hazy peripheral lower lung densities related to overlying s oft tissue. Impression: No definite acute process. Large hiatal hernia projecting behind the heart.
[2019-12-21 13:48] LABS: Basophils # (A) 0.1 k/uL (0-0.2); Basophils % (A) 1 %; Eosinophils # (A) 0.1 k/uL (0-0.7); Eosinophils % (A) 2 %; HGB 14.5 gm/dL (11.4-16.0); Lymphocytes # (A) 1.5 k/uL (1.0-4.8); Lymphocytes % (A) 26 %; MCH 27.1 pg (25.0-35.0); MCHC 32.2 g/dL (31.0-37.0); MCV 84.2 fL (80.0-100.0); Mean Platelet Volume 6.9; Monocytes # (A) 0.3 k/uL (0-1.0); Monocytes % (A) 6 %; Neutrophils # (A) 3.6 k/uL (1.3-7.7); Neutrophils % (A) 64 %; Platelet Count 237 k/uL (150-450); RBC 5.34 m/uL (3.80-5.40); RDW 13.1 % (11.5-15.5); WBC 5.7 k/uL (3.8-10.6)
[2019-12-21 13:54] LABS: Appearance,Urine Cloudy (Clear); Bacteria,Urine Occasional /hpf; Bilirubin,Urine Negative (Negative); Blood,Urine Negative (Negative); Color,Urine Yellow; Glucose,Urine (UA) Negative (Negative); Ketones,Urine Negative (Negative); Leukocyte Esterase,Urine Negative (Negative); Mucus,Urine Many /hpf; Nitrite,Urine Negative (Negative); PH, Urine 5.5 (5.0-8.0); Protein,Urine 1+ (Negative); Specific Gravity,Urine 1.029 (1.001-1.035); Squamous Epithelial Cell,Urine 1 /hpf (0-4); WBC,Urine 3 /hpf (0-5)
[2019-12-21 13:59] LABS: ALT 17 U/L (4-34); AST 19 U/L (14-36); African American GFR (CKD) >90 (>60 ml/min/1.73 sqM); Albumin 3.8 g/dL (3.5-5.0); Alkaline Phosphatase 56 U/L (38-126); Anion Gap 6 mmol/L; Blood Urea Nitrogen 10 mg/dL (7-17); Calcium 8.9 mg/dL (8.4-10.2); Carbon Dioxide 28 mmol/L (22-30); Chloride 104 mmol/L (98-107); Glucose 87 mg/dL (74-99); Magnesium 1.9 mg/dL (1.6-2.3); Non-African American GFR(CKD) >90 (>60 ml/min/1.73 sqM); Potassium 4.1 mmol/L (3.5-5.1); Sodium 138 mmol/L (137-145); Total Bilirubin 0.3 mg/dL (0.2-1.3); Total Protein 6.7 g/dL (6.3-8.2)
[2019-12-21 14:06] LABS: D-Dimer 0.48 mg/L FEU (<0.60); Partial Thromboplastin Time 22.7 sec (22.0-30.0); Prothrombin Time 10.1 sec (9.0-12.0)
[2019-12-21] MEDS ORDERED: NITROGLYCERIN SL TABS 0.4 MG TAB SUBLINGUAL PRN (16:26)
[2019-12-21] MEDS ORDERED: GABAPENTIN 300 MG CAP PO PRN (18:30)
[2019-12-21] MEDS ORDERED: AMITRIPTYLINE HCL 50 MG TAB PO SCH (21:00)
[2019-12-21] MEDS: DULoxetine HCL 30 MG CAPSULE.DR PO SCH (21:06)
[2019-12-22 01:33] VITALS: RESP 18
[2019-12-22 03:43] LABS: Cholesterol 119 mg/dL (<200); HDL Cholesterol 31 mg/dL (40-60); LDL Cholesterol,Calculated 78 mg/dL (0-99); Triglycerides 51 mg/dL (<150)
[2019-12-22] MEDS ORDERED: DOBUTamine DRIP for NUC MED 500 MG in DEXTROSE/WATER 1 250ML.BAG IV ONE (07:58)
[2019-12-22] MEDS ORDERED: PANTOPRAZOLE 40 MG TABLET PO SCH (08:00)
[2019-12-22] MEDS ORDERED: ASPIRIN 325 MG TAB PO SCH (09:00)
[2019-12-22] MEDS ORDERED: HEPARIN SODIUM,PORCINE 5,000 UNIT/ML 1 ML VIAL SQ SCH (09:00)
[2019-12-22] MEDS: DULoxetine HCL 30 MG CAPSULE.DR PO SCH (09:24)
--- NOTE | 2019-12-22 09:51 | CONS ---
CONSULTATION Mrs Hamilton is a 39-year-old female with known history of large hiatal hernia who was evaluated for surgical intervention to repair her hiatal hernia, but it has been postponed because of the peterson virus pandemic who for the last few weeks has been complaining of chest discomfort. The discomfort is not clearly exertional in pattern. It has been constant, associated with some dyspnea and palpitations. The patient is not very active physically because of her history of arthritis. She contacted Dr. Torres yesterday, who has recommended that she come into the emergency room and she was subsequently admitted. The patient has no prior cardiac disease, but no recent cardiac workup. Her coronary risk factors negative for hypertension, hyperlipidemia or smoking. She is nondiabetic. Her medications include Librax, Plaquenil, Neurontin, Cymbalta, Elavil, and Ventolin. REVIEW OF SYSTEMS: RESPIRATORY SYSTEM: She has no documented history of recent wheezing or cough. She has mild asthma. GI SYSTEM: She has the hiatal hernia. No recent GI bleeding. SYSTEM: No dysuria or hematuria. NERVOUS SYSTEM: No stroke or seizure. PHYSICAL EXAMINATION: A 39-year-old female, alert, oriented, in no apparent distress. Blood pressure 107/70 with a heart rate in the 70s. HEAD: Normocephalic. EYES: Sclerae nonicteric. NECK: Good upstroke, no bruit, no venous distension. LUNGS: Clear to auscultation. HEART: Regular rate and rhythm. S1, S2. No S3. No S4. No murmur or rub. ABDOMEN: Soft, nontender, positive bowel sounds, no organomegaly. EXTREMITIES: No edema. Intact distal pulses. LAB DATA: EKG reveals sinus mechanism, normal axis and intervals. Normal electrocardiogram. Chest x-ray shows large hiatal hernia, but no acute infiltrate. Lab data revealed troponin less than 0.012 for 3 samples, cholesterol 119, LDL of 78, BUN and creatinine of 10 and 0.69, potassium 4.1, hemoglobin of 14.5. IMPRESSION: 1. Chest discomfort, appears to be atypical for ischemic heart disease, probably due to the hiatal hernia. 2. History of hiatal hernia. 3. Arthritis. RECOMMENDATION: From the cardiac standpoint, I would recommend to obtain a dobutamine echocardiogram to further evaluate her status and guide her treatment and depending on the results of testing, further recommendation will be made. Thank you for this consult. We will follow with you the. MMODL / IJN: [id number] /
--- NOTE | 2019-12-22 10:54 | ECHOF ---
Referral Reason:chest pain MEASUREMENTS -------- HEIGHT: 167.6 cm WEIGHT: 110.7 kg BP: 107/75 IVSd: 1.0 cm (0.6 - 1.1) LVIDd: 4.9 cm (3.9 - 5.3) LVPWd: 1.1 cm (0.6 - 1.1) IVSs: 1.9 cm LVIDs: 3.0 cm LVPWs: 1.6 cm LAESV Index (A-L): 21.72 ml/m Ao Diam: 3.1 cm (2.0 - 3.7) AV Cusp: 2.2 cm (1.5 - 2.6) LA Diam: 3.3 cm (2.7 - 3.8) MV EXCURSION: 16.312 mm (> 18.000) MV EF SLOPE: 127 mm/s (70 - 150) EPSS: 1.2 cm MV E Biju: 0.74 m/s MV DecT: 219 ms MV A Biju: 0.52 m/s MV E/A Ratio: 1.42 RAP: 5.00 mmHg RVSP: 26.57 mmHg FINDINGS -------- Sinus rhythm. This was a technically adequate study. The left ventricular size is normal. Left ventricular wall thickness is normal. Overall left vent ricular systolic function is normal with, an EF between 55 - 60 %. The diastolic filling pattern is normal for the age of the patient 8.63. The RV was not well visualized. The left atrial size is normal. Normal LA size by volume 22+/-6 ml/m2. The right atrial size is normal. The aortic valve is trileaflet and appears structurally normal. The mitral valve is normal. There is trace mitral regurgitation. The tricuspid valve appears structurally normal. Mild tricuspid regurgitation present. Right vent ricular systolic pressure is normal at < 35 mmHg. There is no pulmonic regurgitation present. The aortic root size is normal. Normal inferior vena cava with normal inspiratory collapse consistent with estimated right atrial pre ssure of 5 mmHg. There is no pericardial effusion. CONCLUSIONS -------- 1. Sinus rhythm. 2. This was a technically adequate study. 3. The left ventricular size is normal. 4. Left ventricular wall thickness is normal. 5. Overall left ventricular systolic function is normal with, an EF between 55 - 60 %. 6. The diastolic filling pattern is normal for the age of the patient 8.63 7. The RV was not well visualized. 8. The left atrial size is normal. 9. Normal LA size by volume 22+/-6 ml/m2. 10. The right atrial size is normal. 11. The aortic valve is trileaflet and appears structurally normal. 12. The mitral valve is normal. 13. There is trace mitral regurgitation. 14. The tricuspid valve appears structurally normal. 15. Mild tricuspid regurgitation present. 16. Right ventricular systolic pressure is normal at < 35 mmHg. 17. There is no pulmonic regurgitation present. 18. The aortic root size is normal. 19. Normal inferior vena cava with normal inspiratory collapse consistent with estimated right atrial pressure of 5 mmHg. 20. There is no pericardial effusion. WELDER ASSISTANT: Stacie Mauro RDCS
[2019-12-22] MEDS: CLIDINIUM-chlordiazePOXIDE (2.5-5 MG) CAP PO SCH ×2 (11:32)
[2019-12-22 11:38] VITALS: PULSE 78
[2019-12-22 11:41] VITALS: BP 108/65; TEMP 98.6
--- NOTE | 2019-12-22 12:03 | ECHOS ---
STRESS ECHOCARDIOGRAM INDICATIONS: Chest pain. BASELINE HEART RATE: 78 BASELINE BLOOD PRESSURE: 120/71 MAXIMUM HEART RATE: 154 MAXIMUM BLOOD PRESSURE: 144/38 85% MPHR: 152 100% MPHR: 179 MAXIMUM STAGE REACHED: 3 TOTAL EXERCISE TIME: 7:00 CLINICAL INFORMATION: Baseline EKG shows sinus rhythm, prior inferolateral myocardial infarction. Patient exercised. Patient was given IV dobutamine over a period of 7 minutes as per protocol, achieving 85% of predicted maximum heart rate without chest pain or diagnostic ST- segment depression. Baseline echo shows normal left ventricular size, wall motion systolic function. Post dobutamine infusion, there is normal hyperdynamic response of myocardium noted. CONCLUSION: 1. Negative stress test by EKG criteria. 2. Negative dobutamine echo. MMODL / IJN: [id number] /
--- NOTE | 2019-12-22 12:50 | P.HPIM ---
History of Present Illness This is combined H&P and discharge summary Diagnoses: chest pain, rule out cardiac causes. Negative d-dimer large hiatal hernia , continue Osteoarthritis Fibromyalgia History of rheumatoid arthritis Asthma, not active issue This is a pleasant 39 years old female with past medical history of rheumatoid arthritis, osteoarthritis, fibromyalgia, asthma, anxiety and depression. Patient presents also with history of chest pain, dyspnea and palpitations, patient is due to hiatal hernia but when she contacted her surgeon Dr. Goodman and her PCP then referred her to the emergency room. Her chest pain was central, nonradiating. 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 Vitals stable. Labs are unremarkable including CBC, BMP, INR, liver enzymes. Serial troponins are negative with less than 0.0123. TSH is normal at 1.8, urinalysis is not suspicious of infection. Coronavirus is not detected. Chest x-ray showing no acute process by combat systems operator mine warfare, large hiatal hernia. EKG: Showed normal sinus rhythm at [address]-T changes and QTC 446. D-dimer is negative at 0.48 Emergency room patient was started on aspirin 325 mg daily echocardiogram showed ejection fraction of 55-60%, normal LV thickness, I offered test but she declined stating that she has tubal ligation. Risks and benefits are explained and she verbalized understanding Eventually patient that cleared by cardiology team for discharge Problems and management plan were discussed with the patient and he verbalized understanding and acceptance Patient was found stable and can be discharged home however he needs follow-up as an outpatient. Patient was instructed to follow up with PCP within one week and patient agrees Gen: patient is a AAOx3, no distress CVS: S1-S2, RRR, no murmur Lungs: B/L CTA, no wheezing Abdomen: soft, no distention, no tenderness, positive bowel sounds Extremity: no leg edema or induration Time spent more than 35 minutes Review of Systems CONSTITUTIONAL: No fever, no malaise, no fatigue. HEENT: No recent visual problems or hearing problems. Denied any sore throat. CARDIOVASCULAR: No orthopnea, PND, no palpitations, no syncope. PULMONARY: No shortness of breath, no cough, no hemoptysis. GASTROINTESTINAL: No diarrhea, no nausea, no vomiting, no abdominal pain. Normoactive bowel sounds. NEUROLOGICAL: No headaches, no weakness, no numbness. HEMATOLOGICAL: Denies any bleeding or petechiae. GENITOURINARY: Denies any burning micturition, frequency, or urgency. MUSCULOSKELETAL/RHEUMATOLOGICAL: Denies any joint pain, swelling, or any muscle pain. ENDOCRINE: Denies any polyuria or polydipsia. Past Medical History Past Medical History: Asthma, Fibromyalgia, Osteoarthritis (OA), Rheumatoid Arthritis (RA), Thyroid Disorder Additional Past Medical History / Comment(s): Hashimotos, anemia, Hx of sepsis., stomach pains. History of Any Multi-Drug Resistant Organisms: None Reported Past Surgical History: Section, Cholecystectomy, Tonsillectomy, Tubal Ligation Past Anesthesia/Blood Transfusion Reactions: No Reported Reaction, Motion Sickness Past Psychological History: Anxiety, Depression Smoking Status: Never smoker Past Alcohol Use History: None Reported Additional Past Alcohol Use History / Comment(s): . Past Drug Use History: None Reported - Past Family History Mother Family Medical History: Cancer Additional Family Medical History / Comment(s): breast & skin cancer Medications and Allergies Home Medications Medication Instructions Recorded Confirmed Type Amitriptyline HCl [Elavil] 50 mg PO HS 11/14/18 12/21/19 History Gabapentin [Neurontin] 300 mg PO TID PRN 11/14/18 12/21/19 History Hydroxychloroquine Sulfate 200 mg PO BID 11/14/18 12/21/19 History [Plaquenil] Ibuprofen [Motrin] 800 mg PO DAILY 11/14/18 12/21/19 History Albuterol Inhaler (Bulk) [Ventolin 2 puff INHALATION RT-Q6H PRN 09/26/19 12/21/19 History Hfa Inhaler] DULoxetine HCL [Cymbalta] 30 mg PO BID 09/26/19 12/21/19 History chlordiazePOXIDE/CLIDINIUM BR 1 cap PO AC-TID 12/21/19 12/21/19 History [Librax] Allergies Allergy/AdvReac Type Severity Reaction Status Date / Time ceftriaxone [From Rocephin] Allergy Anaphylaxis Verified 12/21/19 14:39 Physical Exam Vitals: Vital Signs Temp Pulse Pulse Resp BP BP Pulse Ox 12/22/19 04:00 98.2 F 76 18 107/75 99 12/22/19 00:00 98.1 F 78 18 107/69 100 12/21/19 20:00 97.8 F 76 18 107/67 100 12/21/19 17:45 98.6 F 88 16 112/76 98 12/21/19 16:02 78 18 116/70 98 12/21/19 12:24 98.5 F 101 H 18 117/90 96 Intake and Output 12/21/19 12/22/19 12/22/19 22:59 06:59 14:59 Intake Total 220 20 Balance 220 20 Intake: IV 20 20 Invasive Line 1 20 20 Oral 200 Other: Voiding Method Toilet Toilet # Voids 1 1 Weight 111.13 kg 110.8 kg GENERAL: The patient is alert and oriented x3, not in any acute distress. Well developed, well nourished. HEENT: Pupils are round and equally reacting to light. EOMI. No scleral icterus. No conjunctival pallor. Normocephalic, atraumatic. No pharyngeal erythema. No thyromegaly. CARDIOVASCULAR: S1 and S2 present. No murmurs, rubs, or gallops. PULMONARY: Chest is clear to auscultation, no wheezing or crackles. ABDOMEN: Soft, nontender, nondistended, normoactive bowel sounds. No palpable organomegaly. MUSCULOSKELETAL: No joint swelling or deformity. EXTREMITIES: No cyanosis, clubbing, or pedal edema. NEUROLOGICAL: Gross neurological examination did not reveal any focal deficits. SKIN: No rashes. No petechiae Results CBC & Chem 7: 12/21/19 13:34 12/21/19 13:34 Labs: Abnormal Lab Results - Last 24 Hours (Table) 12/21/19 12/21/19 Range/Units 13:34 18:39 HDL Cholesterol 31 L (40-60) mg/dL Urine Appearance Cloudy H (Clear) Urine Protein 1+ H (Negative) Urine Bacteria Occasional H (None) /hpf Urine Mucus Many H (None) /hpf Thrombosis Risk Factor Assmnt - Choose All That Apply Any of the Below Risk Factors Present?: No Other Risk Factors: No Other congenital or acquired thrombophilia - If yes, enter type in comment: No Thrombosis Risk Factor Assessment Level: Very Low Risk
== END 2019-12-22 15:29 | disposition home or self-care (01) ==
LOC: EC 12:22 → 3SCARD 16:17
PROVIDERS: ADMIT Internal Medicine; ATTEND Internal Medicine
DX: R07.89 Other chest pain (principal); K44.9 Diaphragmatic hernia without obstruction or gangrene; R00.2 Palpitations; J45.909 Unspecified asthma, uncomplicated; M79.7 Fibromyalgia; M19.90 Unspecified osteoarthritis, unspecified site; M06.9 Rheumatoid arthritis, unspecified; E06.3 Autoimmune thyroiditis; D64.9 Anemia, unspecified; F41.9 Anxiety disorder, unspecified; F32.9 Major depressive disorder, single episode, unspecified; Z03.818 Encounter for observation for suspected exposure to other biological agents ruled out; Z79.1 Long term (current) use of non-steroidal anti-inflammatories (NSAID); Z79.899 Other long term (current) drug therapy; Z88.1 Allergy status to other antibiotic agents; Z86.19 Personal history of other infectious and parasitic diseases; Z90.49 Acquired absence of other specified parts of digestive tract; Z98.51 Tubal ligation status; Z98.891 History of uterine scar from previous surgery; Z80.3 Family history of malignant neoplasm of breast; Z80.8 Family history of malignant neoplasm of other organs or systems
CPT/HCPCS: 96372; 93005 ×2; 96360; 99285; 36415; 93351; 85379; 83880; 80061; 80053; 84443; 83735; 84484 ×2; 85025; 85610; 85730; 81001; 87635; 71045; G0378 ×2; J1250; J1644; 93306

== ENCOUNTER → 2020-04-03 | Outpatient (CLI) | payer BC | END | disposition home or self-care (01) | LOC: LABWHC1 11:35 | PROVIDERS: ATTEND Family Medicine | DX: R07.0 Pain in throat (principal); R09.81 Nasal congestion; R11.11 Vomiting without nausea; R14.0 Abdominal distension (gaseous); R14.3 Flatulence; R19.7 Diarrhea, unspecified | CPT/HCPCS: U0003; C9803 ==

== ENCOUNTER → 2020-10-09 | Outpatient (CLI) | payer BC ==
--- NOTE | 2020-10-09 13:59 | MM ---
Reason for exam: screening (asymptomatic). Baseline mammogram. History: Family history of breast cancer in mother at age 50. Physical Findings: Nurse did not find any significant physical abnormalities on exam. MG Screening Mammo w CAD Bilateral CC and MLO view(s) were taken. The breast tissue is heterogeneously dense. This may lower the sensitivity of mammography. There is no discrete abnormality. These results were verbally communicated with the patient and result sheet given to the patient on 10/09/20. ASSESSMENT: Negative, BI-RAD 1 RECOMMENDATION: Routine screening mammogram of both breasts in 1 year.
== END | disposition home or self-care (01) ==
LOC: RADMAMWWP 13:00
PROVIDERS: ATTEND Family Medicine
DX: Z12.31 Encounter for screening mammogram for malignant neoplasm of breast (principal)
CPT/HCPCS: 77067

== ENCOUNTER → 2020-11-18 | Outpatient (CLI) | payer BC ==
--- NOTE | 2020-11-28 11:45 | HM ---
HOLTER MONITOR REPORT A 24-hour DCG report. There was no diary provided with the recording. Predominant rhythm appears to be sinus with a heart rate ranging from 62 to 148 beats per minute with average heart rate of 88 beats per minute. The rare isolated PVCs are noted and rare isolated PACs were noted. There was no evidence of any significant tachy or bradyarrhythmia. FINAL IMPRESSION: This is an unremarkable 24-hour DCG recording with predominant sinus rhythm and average heart rate of 88 beats per minute. No evidence of any tachy or bradyarrhythmia of significance was noted and no symptoms were reported. MMODL / IJN: [id number] /
== END | disposition home or self-care (01) ==
LOC: RADECHMAIN 12:07
PROVIDERS: ATTEND Physician Assistant Medical
DX: R00.2 Palpitations (principal)
CPT/HCPCS: 93225; 93226

== ENCOUNTER 2020-11-26 14:23 | Emergency (ER) | payer BC ==
--- NOTE | 2020-11-26 16:40 | ED ---
General Adult HPI <Fer Cuevas - Last Filed: 11/26/20 16:40> <Olivier Bonds - Last Filed: 11/26/20 19:52> - General Stated complaint: ABD pain - History of Present Illness Initial comments: 40-year-old female w PMH of fibromyaglia, abdominal pain, asthma presents to the ER for cc of abominal pain x 1 day. States it started this morning. Patient states she has vomited several times today as well. Patient states pain is worse in the mid left abdomen. Denies pain radiating to her back. Rates pain as an 8/10. Patient reports she has had this pain before. States it has gotten better since her surgery for her hiatal hernia but still comes and goes. Reports the only thing that helps is dilaudid. She states she can usually get a dose here and then go home and is fine. Denies diarrhea or fevers. Denies CP or SOB. (Fer Cuevas) 40-year-old female presents to emergency Department with a chief complaint of abdominal pain. Pain was somewhat of a sudden onset, sharp in nature in the left flank region without any radiation. States this is her typical abdominal pain that she gets acute flares. Patient reports she has a "hyperactive stomach". States she has been evaluated multiple times with no definitive findings. Patient states she is not looking for any laboratory work or imaging. States typically antibiotics, Ancef fluids and analgesia is all it takes to extinguish a flare up. She denies any chest pain shortness of breath. Does report nausea with multiple episodes of nonbilious and nonbloody vomiting. She is currently on her menstrual period. Denies any constipation or diarrhea. (Olivier Bonds) - Related Data Home Medications Medication Instructions Recorded Confirmed Amitriptyline HCl [Elavil] 50 mg PO HS 11/14/18 12/21/19 Gabapentin [Neurontin] 300 mg PO TID PRN 11/14/18 12/21/19 Hydroxychloroquine Sulfate 200 mg PO BID 11/14/18 12/21/19 [Plaquenil] Albuterol Inhaler (Mhu) [Ventolin 2 puff INHALATION RT-Q6H PRN 09/26/19 12/21/19 Hfa Inhaler (Mhu)] DULoxetine HCL [Cymbalta] 30 mg PO BID 09/26/19 12/21/19 chlordiazePOXIDE/CLIDINIUM BR 1 cap PO AC-TID 12/21/19 12/21/19 [Librax] Previous Rx's Medication Instructions Recorded Omeprazole [PriLOSEC] 20 mg PO AC-BRKFST #30 cap 12/22/19 Allergies Allergy/AdvReac Type Severity Reaction Status Date / Time ceftriaxone [From Rocephin] Allergy Anaphylaxis Verified 11/26/20 16:41 Review of Systems ROS Other: All systems not noted in ROS Statement are negative. <Fer Cuevas P - Last Filed: 11/26/20 16:40> ROS Other: All systems not noted in ROS Statement are negative. <Olivier Bonds - Last Filed: 11/26/20 19:52> ROS Statement: Those systems with pertinent positive or pertinent negative responses have been documented in the HPI. Past Medical History Past Medical History: Asthma, Fibromyalgia, Osteoarthritis (OA), Rheumatoid Arthritis (RA), Thyroid Disorder Additional Past Medical History / Comment(s): Hashimotos, anemia, Hx of sepsis., stomach pains. History of Any Multi-Drug Resistant Organisms: None Reported Past Surgical History: Section, Cholecystectomy, Tonsillectomy, Tubal Ligation Past Anesthesia/Blood Transfusion Reactions: No Reported Reaction, Motion Sickness Past Psychological History: Anxiety, Depression Past Alcohol Use History: None Reported Additional Past Alcohol Use History / Comment(s): . Past Drug Use History: None Reported - Past Family History Mother Family Medical History: Cancer Additional Family Medical History / Comment(s): breast & skin cancer <Fer Cuevas P - Last Filed: 11/26/20 16:40> General Exam Limitations: no limitations General appearance: alert, in no apparent distress, obese Head exam: Present: atraumatic, normocephalic, normal inspection Eye exam: Present: normal appearance, PERRL, EOMI Pupils: Present: normal accommodation ENT exam: Present: normal exam, normal oropharynx, mucous membranes moist, TM's normal bilaterally, normal external ear exam Neck exam: Present: normal inspection, full ROM. Absent: tenderness Respiratory exam: Present: normal lung sounds bilaterally. Absent: respiratory distress, wheezes, rales, rhonchi, stridor, chest wall tenderness Cardiovascular Exam: Present: regular rate, normal rhythm, normal heart sounds GI/Abdominal exam: Present: soft, tenderness (Left-sided abdominal tenderness.), normal bowel sounds. Absent: distended, guarding, rebound, rigid Extremities exam: Present: normal inspection, full ROM, normal capillary refill, other (Palpable DP and PT bilaterally). Absent: tenderness, pedal edema, joint swelling, calf tenderness Back exam: Present: normal inspection, full ROM. Absent: tenderness, CVA tenderness (R), CVA tenderness (L) Neurological exam: Present: alert, oriented X3 Psychiatric exam: Present: normal affect, normal mood Skin exam: Present: warm, dry, intact, normal color <Olivier Bonds - Last Filed: 11/26/20 19:52> Course Vital Signs 11/26/20 11/26/20 11/26/20 16:37 17:41 18:00 Temperature 98.5 F Pulse Rate 94 Respiratory 22 18 18 Rate Blood Pressure 120/81 O2 Sat by Pulse 100 Oximetry 11/26/20 19:00 Temperature Pulse Rate Respiratory 18 Rate Blood Pressure O2 Sat by Pulse Oximetry Medical Decision Making <Olivier Bonds - Last Filed: 11/26/20 19:52> - Medical Decision Making 40-year-old female with a chief complaint of abdominal pain. On physical examination, left-sided abdominal tenderness. Patient does have hematuria in the UA, however she is currently on her menstrual period. I offered laboratory work and CT imaging, patient refused. Patient is only requesting IV fluids, antiemetics and analgesia. Patient was given 1 L IV bolus fluids, 0.5 mg of Dilaudid and 4 mg of Zofran. On reevaluation, patient reports improvement in the pain, however the nausea is still persistent. Patient was also given Reglan and Benadryl. Patient will be given Compazine if her symptoms are improved. Strict return parameters were thoroughly discussed the patient was understanding and agreeable. Case discussed with Dr. Jeong. (Olivier Bonds) - Lab Data Lab Results 11/26/20 Range/Units 16:42 Urine Color Yellow Urine Appearance Clear (Clear) Urine pH 6.0 (5.0-8.0) Ur Specific [place] 1.029 (1.001-1.035) Urine Protein Trace H (Negative) Urine Glucose (UA) Negative (Negative) Urine Ketones Negative (Negative) Urine Blood Moderate H (Negative) Urine Nitrite Negative (Negative) Urine Bilirubin Negative (Negative) Urine Urobilinogen 2.0 (<2.0) mg/dL Ur Leukocyte Esterase Negative (Negative) Urine RBC 83 H (0-5) /hpf Urine WBC 3 (0-5) /hpf Ur Squamous Epith Cells 2 (0-4) /hpf Urine Bacteria Rare H (None) /hpf Hyaline Casts 1 (0-2) /lpf Urine Mucus Moderate H (None) /hpf Disposition <Fer Cuevas - Last Filed: 11/26/20 16:40> Is patient prescribed a controlled substance at d/c from ED?: No Time of Disposition: 19:52 <Olivier Bonds - Last Filed: 11/26/20 19:52> Clinical Impression: Abdominal pain, Nausea and vomiting Disposition: HOME SELF-CARE Condition: Stable Instructions (If sedation given, give patient instructions): Abdominal Pain (ED) Additional Instructions: Please return to the Emergency Department if symptoms worsen or any other concerns. Referrals: Nicole Torres MD [Primary Care Provider] - 1-2 days
[2020-11-26 16:57] LABS: Appearance,Urine Clear (Clear); Bacteria,Urine Rare /hpf; Bilirubin,Urine Negative (Negative); Blood,Urine Moderate (Negative); Color,Urine Yellow; Glucose,Urine (UA) Negative (Negative); Hyaline Casts,Urine 1 /lpf (0-2); Ketones,Urine Negative (Negative); Leukocyte Esterase,Urine Negative (Negative); Mucus,Urine Moderate /hpf; Nitrite,Urine Negative (Negative); Protein,Urine Trace (Negative); RBC,Urine 83 /hpf (0-5); Specific Gravity,Urine 1.029 (1.001-1.035); Squamous Epithelial Cell,Urine 2 /hpf (0-4); WBC,Urine 3 /hpf (0-5)
[2020-11-26] MEDS ORDERED: HYDROmorphone 0.5 MG/0.5 ML SYRINGE IVP STA (17:54)
[2020-11-26] MEDS ORDERED: FAMOTIDINE 20 MG/2 ML VIAL IV STA (17:54)
[2020-11-26] MEDS ORDERED: SODIUM CHLORIDE 0.9% 1,000 ML IV STA (17:54)
[2020-11-26] MEDS ORDERED: ONDANSETRON 4 MG/2 ML VIAL IVP STA (17:54)
[2020-11-26] MEDS ORDERED: METOCLOPRAMIDE 5 MG/ML 2 ML VIAL IVP STA (19:27)
[2020-11-26] MEDS ORDERED: diphenhydrAMINE 50 MG/ML 1 ML VIAL IVP STA (19:27)
[2020-11-26] MEDS ORDERED: PROCHLORPERAZINE INJ 10 MG/2 ML VIAL IVP STA (19:48)
[2020-11-26 20:04] VITALS: BP 103/68; PULSE 81; RESP 16; TEMP 98.4
== END 2020-11-26 20:08 | disposition home or self-care (01) ==
LOC: EC 14:23
DX: R10.819 Abdominal tenderness, unspecified site (principal); R11.2 Nausea with vomiting, unspecified; F41.9 Anxiety disorder, unspecified; F32.9 Major depressive disorder, single episode, unspecified; J45.909 Unspecified asthma, uncomplicated; Z79.899 Other long term (current) drug therapy; Z88.1 Allergy status to other antibiotic agents; Z90.49 Acquired absence of other specified parts of digestive tract; Z87.891 Personal history of nicotine dependence; Z98.51 Tubal ligation status
CPT/HCPCS: 81001; 99284; 96374; 96375 ×4; 96361; J1200; J2765; J2405; J1170

== ENCOUNTER 2024-09-19 17:54 | Emergency (ER) | payer BC ==
--- NOTE | 2024-09-19 18:04 | ED ---
Nausea/Vomiting/Diarrhea HPI - General Stated complaint: vomiting,diarrhea Time Seen by Provider: 09/19/24 18:01 Source: patient, RN notes reviewed Mode of arrival: ambulatory Limitations: no limitations - History of Present Illness Initial comments: 44-year-old female presenting to the ER for evaluation of severe diarrhea and vomiting x 5 days. She admits to a history of IBS-D. She is following up with Dr. Goldsmith. She reports for the past 5 to 7 days she has been unable to keep anything down including liquids. She also endorses liquid diarrhea. She is endorsing an achy generalized abdominal pain. She denies any hematic emesis, melena or hematochezia. She has tried [id number] medications including Imodium without relief. Patient states she feels very weak. She denies any fevers, cough, congestion, chest pain, shortness of breath, urinary complaints or peripheral edema. - Related Data Home Medications Medication Instructions Recorded Confirmed Amitriptyline HCl [Elavil] 50 mg PO HS 11/14/18 06/21/24 Hydroxychloroquine Sulfate 200 mg PO HS 11/14/18 06/21/24 [Plaquenil] Albuterol Inhaler [Ventolin Hfa 2 puff INHALATION RT-Q6H PRN 09/26/19 06/21/24 Inhaler] Adalimumab [Humira(Cf) Pen] 40 mg SQ Q14D 06/21/24 06/21/24 Cholestyramine (with Sugar) 4 gm PO DAILY 06/21/24 06/21/24 [Cholestyramine Powder] Diphenoxylate HCl/Atropine 1 tab PO QAM 06/21/24 06/21/24 [Lomotil 2.5-0.025 mg Tablet] Famotidine [Pepcid] 40 mg PO HS 06/21/24 06/21/24 Meclizine [Antivert] 25 mg PO TID PRN 06/21/24 06/21/24 Metoprolol Succinate (ER) [Toprol 50 mg PO HS 06/21/24 06/21/24 XL] Venlafaxine HCl ER [Effexor XR] 75 mg PO HS 06/21/24 06/21/24 Venlafaxine HCl ER [Effexor XR] 150 mg PO HS 06/21/24 06/21/24 Previous Rx's Medication Instructions Recorded Aspirin 81 mg PO DAILY #30 tab 06/21/24 Atorvastatin [Lipitor] 20 mg PO HS #30 tab 06/21/24 Allergies Allergy/AdvReac Type Severity Reaction Status Date / Time ceftriaxone [From Rocephin] Allergy Anaphylaxis Verified 09/19/24 18:29 Review of Systems ROS Statement: Those systems with pertinent positive or pertinent negative responses have been documented in the HPI. ROS Other: All systems not noted in ROS Statement are negative. Past Medical History Past Medical History: Asthma, Fibromyalgia, Osteoarthritis (OA), Rheumatoid Arthritis (RA), Thyroid Disorder Additional Past Medical History / Comment(s): Hashimotos, anemia, Hx of sepsis., stomach pains. History of Any Multi-Drug Resistant Organisms: None Reported Past Surgical History: Section, Cholecystectomy, Tonsillectomy, Tubal Ligation Past Anesthesia/Blood Transfusion Reactions: No Reported Reaction, Motion Sickness Past Psychological History: Anxiety, Depression Smoking Status: Never smoker Past Alcohol Use History: None Reported Past Drug Use History: None Reported - Past Family History Mother Family Medical History: Cancer Additional Family Medical History / Comment(s): breast & skin cancer General Exam - General Exam Comments Initial Comments: Visual Physical Exam Vital signs reviewed General: Well-appearing, nontoxic, no acute distress. Head: Normocephalic, atraumatic Eyes: PERRLA, EOMI ENT: Airway patent Chest: Nonlabored breathing Skin: No visual rash, normal skin tone Neuro: Alert and oriented 3 Musculoskeletal: No gross abnormalities General appearance: alert, in no apparent distress Respiratory exam: Present: normal lung sounds bilaterally. Absent: respiratory distress, wheezes, rales, rhonchi, stridor Cardiovascular Exam: Present: regular rate, normal rhythm, normal heart sounds. Absent: systolic murmur, diastolic murmur, rubs, gallop, clicks GI/Abdominal exam: Present: soft, tenderness (Generalized), normal bowel sounds Neurological exam: Present: alert, oriented X3, CN II-XII intact Skin exam: Present: warm, dry, intact, normal color. Absent: rash Course Vital Signs 09/19/24 09/19/24 18:27 23:01 Temperature 98.6 F Pulse Rate 107 H 110 H Respiratory 18 18 Rate Blood Pressure 126/84 113/82 O2 Sat by Pulse 97 98 Oximetry Medical Decision Making - Medical Decision Making Was pt. sent in by a medical professional or institution (ELEANOR Gibbons, FAMILY SERVICE CASEWORKER, urgent care, hospital, or fci...) When possible be specific @ -No Did you speak to anyone other than the patient for history (EMS, parent, family, police, friend...)? What history was obtained from this source @ -No Did you review nursing and triage notes (agree or disagree)? Why? @ -I reviewed and agree with nursing and triage notes Were old charts reviewed (outside hosp., previous admission, EMS record, old EKG, old radiological studies, urgent care reports/EKG's, fci records)? Report findings @ -No old charts were reviewed Differential Diagnosis (chest pain, altered mental status, abdominal pain women, abdominal pain men, vaginal bleeding, weakness, fever, dyspnea, syncope, headache, dizziness, GI bleed, back pain, seizure, CVA, palpatations, mental health, musculoskeletal)? @ -Differential Abdominal Pain Women:Appendicitis, Cholecystitis, diverticulosis, ischemic bowel, pancreatitis, hepatitis, UTI, gastroenteritis, AAA, incarcerated hernia, bowel obstruction, constipation, inflammatory bowel, hepatitis, peptic ulcer disease, splenic infarction, perforated viscus, vulvitis, ovarian torsion, PID, kidney stone, placenta abruption, this is not meant to be an all-inclusive list EKG interpreted by me (3pts min.). @ -None done X-rays interpreted by me (1pt min.). @ -None done CT interpreted by me (1pt min.). @ -CT abdomen pelvis showing no acute evidence of intra-abdominal process. Small hiatal hernia. Cobb hernia. U/S interpreted by me (1pt. min.). @ -None done What testing was considered but not performed or refused? (CT, X-rays, U/S, labs)? Why? @ -None What meds were considered but not given or refused? Why? @ -None Did you discuss the management of the patient with other professionals (professionals i.e. ELEANOR Gibbons, FAMILY SERVICE CASEWORKER, lab, RT, psych nurse, social service agency director, inspector assembly, teacher, credit officer, correctional case records supervisor)? Give summary @ -No Was smoking cessation discussed for >3mins.? @ -No Was critical care preformed (if so, how long)? @ -No Were there social determinants of health that impacted care today? How? (Ho melessness, low income, unemployed, alcoholism, drug addiction, transportation, low edu. Level, literacy, decrease access to med. care, group home, rehab)? @ -No Was there de-escalation of care discussed even if they declined (Discuss DNR or withdrawal of care, Hospice)? DNR status @ -No What co-morbidities impacted this encounter? (DM, HTN, Smoking, COPD, CAD, Cancer, CVA, ARF, Chemo, Hep., AIDS, mental health diagnosis, sleep apnea, morbid obesity)? @ -IBS-D Was patient admitted / discharged? Hospital course, mention meds given and route, prescriptions, significant lab abnormalities, going to OR and other pertinent info. @ -Discharge. 44-year-old female presented the ER for evaluation of nausea, vomiting diarrhea x 5 days. Upon rooming, history and physical exam completed. Vitals within acceptable limits. Patient in no signs of acute distress nontoxic-appearing. Generalized abdominal pain on exam with normal bowel sounds. No rebound or guarding. CBC unremarkable. CMP with a potassium of 3.4 for which patient was instructed to increase potassium intake. Otherwise unimpressive. Urinalysis contaminated with 5 epithelial cells. No evidence of infection. Cepheid negative. CT abdomen pelvis negative for acute intra- abdominal process. Symptomatic control in the ER, with improvement. Patient able to consume egg salad sandwich without difficulty. Patient asking for disch arge upon reevaluation. Patient discharged with Zofran starter pack. Advise close follow-up with PCP and GI. Strict return parameters discussed. Patient discharged in stable condition with follow-up to PCP. Patient verbally expressed understanding and agreement with care plan. Case discussed with ED attending, Dr. Burnham. Undiagnosed new problem with uncertain prognosis? @ -No Drug Therapy requiring intensive monitoring for toxicity (Heparin, Nitro, Insulin, Cardizem)? @ -No Were any procedures done? @ -No Diagnosis/symptom? @ -[Nausea/diarrhea Acute, or Chronic, or Acute on Chronic? @ -Acute Uncomplicated (without systemic symptoms) or Complicated (systemic symptoms)? @ -Uncomplicated Side effects of treatment? @ -No Exacerbation, Progression, or Severe Exacerbation? @ -No Poses a threat to life or bodily function? How? (Chest pain, USA, MA, pneumonia, PE, COPD, DKA, ARF, appy, cholecystitis, CVA, Diverticulitis, Homicidal, Suicidal, threat to staff... and all critical care pts) @ -No - Lab Data Result diagrams: 09/19/24 20:14 09/19/24 20:14 Lab Results 09/19/24 09/19/24 09/19/24 Range/Units 20:14 20:14 20:14 WBC 9.2 (3.8-10.6) k/uL RBC 4.91 (3.80-5.40) m/uL Hgb 13.2 (11.4-16.0) gm/dL Hct 39.8 (34.0-46.0) % MCV 81.0 (80.0-100.0) fL MCH 26.8 (25.0-35.0) pg MCHC 33.1 (31.0-37.0) g/dL RDW 13.8 (11.5-15.5) % Plt Count 318 (150-450) k/uL MPV 7.0 Neutrophils % 58 % Lymphocytes % 28 % Monocytes % 7 % Eosinophils % 4 % Basophils % 1 % Neutrophils # 5.3 (1.3-7.7) k/uL Lymphocytes # 2.5 (1.0-4.8) k/uL Monocytes # 0.6 (0-1.0) k/uL Eosinophils # 0.3 (0-0.7) k/uL Basophils # 0.1 (0-0.2) k/uL Sodium 140 (137-145) mmol/L Potassium 3.4 L (3.5-5.1) mmol/L Chloride 103 (98-107) mmol/L Carbon Dioxide 27 (22-30) mmol/L Anion Gap 10 mmol/L BUN 11 (7-17) mg/dL Creatinine 0.79 (0.52-1.04) mg/dL Est GFR (CKD-EPI)AfAm >90 (>60 ml/min/1.73 sqM) Est GFR (CKD-EPI)NonAf >90 (>60 ml/min/1.73 sqM) Glucose 106 H (74-99) mg/dL Plasma Lactic Acid Fabian 1.2 (0.7-2.0) mmol/L Calcium 10.1 (8.4-10.2) mg/dL Total Bilirubin 0.6 (0.2-1.3) mg/dL AST 43 H (14-36) U/L ALT 45 H (4-34) U/L Alkaline Phosphatase 76 (38-126) U/L Total Protein 7.5 (6.3-8.2) g/dL Albumin 4.4 (3.5-5.0) g/dL Amylase 35 (30-110) U/L Lipase 37 (23-300) U/L Urine Color Urine Appearance (Clear) Urine pH (5.0-8.0) Ur Specific [place] (1.001-1.035) Urine Protein (Negative) Urine Glucose (UA) (Negative) Urine Ketones (Negative) Urine Blood (Negative) Urine Nitrite (Negative) Urine Bilirubin (Negative) Urine Urobilinogen (<2.0) mg/dL Ur Leukocyte Esterase (Negative) Urine RBC (0-5) /hpf Urine WBC (0-5) /hpf Ur Squamous Epith Cells (0-4) /hpf Calcium Oxalate Crystal (None) /hpf Urine Bacteria (None) /hpf Urine Mucus (None) /hpf Influenza Type A (PCR) (Not Detectd) Influenza Type B (PCR) (Not Detectd) RSV (PCR) (Not Detectd) SARS-CoV-2 (PCR) (Not Detectd) 09/19/24 09/19/24 Range/Units 20:14 20:40 WBC (3.8-10.6) k/uL RBC (3.80-5.40) m/uL Hgb (11.4-16.0) gm/dL Hct (34.0-46.0) % MCV (80.0-100.0) fL MCH (25.0-35.0) pg MCHC (31.0-37.0) g/dL RDW (11.5-15.5) % Plt Count (150-450) k/uL MPV Neutrophils % % Lymphocytes % % Monocytes % % Eosinophils % % Basophils % % Neutrophils # (1.3-7.7) k/uL Lymphocytes # (1.0-4.8) k/uL Monocytes # (0-1.0) k/uL Eosinophils # (0-0.7) k/uL Basophils # (0-0.2) k/uL Sodium (137-145) mmol/L Potassium (3.5-5.1) mmol/L Chloride (98-107) mmol/L Carbon Dioxide (22-30) mmol/L Anion Gap mmol/L BUN (7-17) mg/dL Creatinine (0.52-1.04) mg/dL Est GFR (CKD-EPI)AfAm (>60 ml/min/1.73 sqM) Est GFR (CKD-EPI)NonAf (>60 ml/min/1.73 sqM) Glucose (74-99) mg/dL Plasma Lactic Acid Fabian (0.7-2.0) mmol/L Calcium (8.4-10.2) mg/dL Total Bilirubin (0.2-1.3) mg/dL AST (14-36) U/L ALT (4-34) U/L Alkaline Phosphatase (38-126) U/L Total Protein (6.3-8.2) g/dL Albumin (3.5-5.0) g/dL Amylase (30-110) U/L Lipase (23-300) U/L Urine Color Yellow Urine Appearance Cloudy H (Clear) Urine pH 5.5 (5.0-8.0) Ur Specific [place] 1.030 (1.001-1.035) Urine Protein 1+ H (Negative) Urine Glucose (UA) Negative (Negative) Urine Ketones 2+ H (Negative) Urine Blood Negative (Negative) Urine Nitrite Negative (Negative) Urine Bilirubin 1+ H (Negative) Urine Urobilinogen 2.0 (<2.0) mg/dL Ur Leukocyte Esterase Negative (Negative) Urine RBC 2 (0-5) /hpf Urine WBC 4 (0-5) /hpf Ur Squamous Epith Cells 5 H (0-4) /hpf Calcium Oxalate Crystal Moderate H (None) /hpf Urine Bacteria Few H (None) /hpf Urine Mucus Many H (None) /hpf Influenza Type A (PCR) Not Detected (Not Detectd) Influenza Type B (PCR) Not Detected (Not Detectd) RSV (PCR) Not Detected (Not Detectd) SARS-CoV-2 (PCR) Not Detected (Not Detectd) - Radiology Data Radiology results: report reviewed, image reviewed Disposition Clinical Impression: Diarrhea Disposition: HOME SELF-CARE Condition: Stable Instructions (If sedation given, give patient instructions): Potassium Content of Foods List (ED), Acute Nausea and Vomiting (DC), Acute Diarrhea (ED) Additional Instructions: Increase potassium intake. Follow-up with PCP. Return to the ER for new or worsening concerns. Is patient prescribed a controlled substance at d/c from ED?: No Referrals: Nicole Torres MD [Primary Care Provider] - 1-2 days Time of Disposition: 22:46
[2024-09-19 18:29] VITALS: RESP 18; TEMP 98.6
[2024-09-19 20:26] LABS: Basophils # (A) 0.1 k/uL (0-0.2); Basophils % (A) 1 %; Eosinophils # (A) 0.3 k/uL (0-0.7); Eosinophils % (A) 4 %; HCT 39.8 % (34.0-46.0); HGB 13.2 gm/dL (11.4-16.0); Lymphocytes # (A) 2.5 k/uL (1.0-4.8); Lymphocytes % (A) 28 %; MCH 26.8 pg (25.0-35.0); MCHC 33.1 g/dL (31.0-37.0); Monocytes # (A) 0.6 k/uL (0-1.0); Monocytes % (A) 7 %; Neutrophils # (A) 5.3 k/uL (1.3-7.7); Neutrophils % (A) 58 %; Platelet Count 318 k/uL (150-450); RBC 4.91 m/uL (3.80-5.40); RDW 13.8 % (11.5-15.5); WBC 9.2 k/uL (3.8-10.6)
[2024-09-19] MEDS: ONDANSETRON 4 MG/2 ML VIAL IVP STA (20:35)
[2024-09-19] MEDS: SODIUM CHLORIDE 0.9% 1,000 ML IV STA (20:36)
[2024-09-19 20:38] LABS: ALT 45 U/L (4-34); AST 43 U/L (14-36); African American GFR (CKD) >90 (>60 ml/min/1.73 sqM); Albumin 4.4 g/dL (3.5-5.0); Alkaline Phosphatase 76 U/L (38-126); Amylase 35 U/L (30-110); Anion Gap 10 mmol/L; Blood Urea Nitrogen 11 mg/dL (7-17); Calcium 10.1 mg/dL (8.4-10.2); Carbon Dioxide 27 mmol/L (22-30); Chloride 103 mmol/L (98-107); Glucose 106 mg/dL (74-99); Lipase 37 U/L (23-300); Non-African American GFR(CKD) >90 (>60 ml/min/1.73 sqM); Potassium 3.4 mmol/L (3.5-5.1); Sodium 140 mmol/L (137-145); Total Bilirubin 0.6 mg/dL (0.2-1.3); Total Protein 7.5 g/dL (6.3-8.2)
[2024-09-19 21:01] LABS: Influenza A Not Detected (Not Detectd); Influenza B Not Detected (Not Detectd); RSV Not Detected (Not Detectd)
[2024-09-19 21:06] LABS: Appearance,Urine Cloudy (Clear); Bacteria,Urine Few /hpf; Bilirubin,Urine 1+ (Negative); Blood,Urine Negative (Negative); Calcium Oxalate Crystals,Urine Moderate /hpf; Color,Urine Yellow; Glucose,Urine (UA) Negative (Negative); Ketones,Urine 2+ (Negative); Leukocyte Esterase,Urine Negative (Negative); Mucus,Urine Many /hpf; Nitrite,Urine Negative (Negative); PH, Urine 5.5 (5.0-8.0); Protein,Urine 1+ (Negative); RBC,Urine 2 /hpf (0-5); Squamous Epithelial Cell,Urine 5 /hpf (0-4); WBC,Urine 4 /hpf (0-5)
--- NOTE | 2024-09-19 22:02 | CT ---
EXAMINATION TYPE: CT abdomen pelvis w con DATE OF EXAM: 09/19/2024 9:43 PM COMPARISON: CT abdomen pelvis most recent from 11/08/2015 CLINICAL INDICATION: Female, 44 years old with history of diarrhea x 5 days; diarrhea, nausea and vom iting for 5-7 days, dizziness, abdominal pain TECHNIQUE: Axial CT abdomen pelvis w con;Sagittal and coronal reformats were created on a separate w orkstation. Contrast used:100mL mL of Isovue 300 with IV Contrast, (none if empty) Oral contrast used: without Oral Contrast (none if empty) CT DLP: 2084.6 mGycm, Automated exposure control for dose reduction was used. FINDINGS: LOWER CHEST: Unremarkable ABDOMEN LIVER: Unremarkable GALLBLADDER AND BILE DUCTS: The gallbladder is surgically absent. PANCREAS: Unremarkable. SPLEEN: Unremarkable. ADRENAL GLANDS: Unremarkable. KIDNEYS AND URETERS: No evidence of hydronephrosis or renal calculus. The ureters are unremarkable. PELVIS BLADDER: No evidence for wall thickening or mass given limitations of exam. REPRODUCTIVE: Unremarkable. ABDOMEN & PELVIS STOMACH AND BOWEL: Small hiatal hernia, duodenum is unremarkable No evidence of bowel obstruction. PERITONEUM/RETROPERITONEUM: No evidence of pneumoperitoneum or free fluid. VASCULATURE: No evidence of aortic aneurysm. MUSCULOSKELETAL: No acute osseous abnormalities LYMPH NODES: No gross evidence for lymphadenopathy. SOFT TISSUE/ABDOMINAL WALL: Ventral wall fat-containing hernias there is herniation into the anterior abdominal wall upper abdomen. Mild 3 image 73 with half a loop segment of small bowel extending thro ugh this hernia. This does not go completely into the anterior abdominal subcutaneous tissues at term inates in the rectus abdominis myofascial plane. IMPRESSION: 1. No evidence for acute abdominal process. 2. Small hiatal hernia. 3. Abdominal wall Cobb small bowel Cobb hernia extending into the myofascial plane of the righ t rectus abdominis musculature. [facility], , 09/19/2024 10:00 PM
[2024-09-19] MEDS: METOCLOPRAMIDE 5 MG/ML 2 ML VIAL IVP STA (22:24)
[2024-09-19] MEDS: ONDANSETRON 4 MG ODT STARTER PACK 2 TAB BTL PO STA (23:00)
[2024-09-19 23:03] VITALS: BP 113/82; PULSE 110
== END 2024-09-19 23:02 | disposition home or self-care (01) ==
LOC: EC 17:54
DX: K58.0 Irritable bowel syndrome with diarrhea (principal); Z88.1 Allergy status to other antibiotic agents; Z11.52 Encounter for screening for COVID-19
CPT/HCPCS: 36415; 80053; 82150; 83605; 83690; 85025; 81001; 87636; 74177; 99284; 96374; 96375; 96361 ×2; J2765; J2405; S0119; Q9967

== ENCOUNTER 2025-02-27 07:51 | Day surgery (SDC) | payer BC ==
[2025-02-23 11:19] VITALS: BMI 44.9
[~2025-02-27 07:51] MED LIST changes: -LACTATED RINGERS 1,000 ML IV SCH; +LIDOCAINE 1% (10MG/ML) FOR IV START INTRADERMA PRN; -LIDOCAINE 1% 20 ML VIAL (10MG/ML) FOR IV START INTRADERMA PRN
[2025-02-27 08:23] VITALS: TEMP 97
[2025-02-27] MEDS: IV FLUID CONTINUATION 1,000 ML IV ONE ×2 (08:37→09:31)
[2025-02-27] MEDS: LACTATED RINGERS 1,000 ML IV SCH (08:37)
[2025-02-27] MEDS: ONDANSETRON 4 MG/2 ML VIAL IVP PRN (08:46)
[2025-02-27] MEDS ORDERED: ONDANSETRON 4 MG/2 ML VIAL ONE (08:57)
[2025-02-27] MEDS ORDERED: PROPOFOL 10 MG/ML 20 ML VIAL IV ONE (08:57)
--- NOTE | 2025-02-27 09:09 | P.GSHP ---
History of Present Illness H&P Date: 02/27/25 Chief Complaint: Colon cancer screening 44-year-old female here for colonoscopy. Last upper and lower endoscopy 5 years ago. Patient had hiatal hernia. History of colon polyps previously. No family history of colon cancer. No bowel complaints. Past Medical History Past Medical History: Asthma, Fibromyalgia, Osteoarthritis (OA), Rheumatoid Arthritis (RA), Thyroid Disorder Additional Past Medical History / Comment(s): Hashimotos, anemia, Hx of sepsis, IBS, tachycardia, occasional heart palpitations History of Any Multi-Drug Resistant Organisms: None Reported Past Surgical History: Section, Cholecystectomy, Tonsillectomy, Tubal Ligation Additional Past Surgical History / Comment(s): Brandt Fundoplication Past Anesthesia/Blood Transfusion Reactions: No Reported Reaction, Motion Sickness Past Psychological History: Anxiety, Depression Smoking Status: Never smoker Past Alcohol Use History: None Reported Additional Past Alcohol Use History / Comment(s): . Past Drug Use History: None Reported - Past Family History Mother Family Medical History: Cancer Additional Family Medical History / Comment(s): breast & skin cancer Medications and Allergies Home Medications Medication Instructions Recorded Confirmed Type Hydroxychloroquine Sulfate 200 mg PO HS 11/14/18 02/27/25 History [Plaquenil] Albuterol Inhaler [Ventolin Hfa 2 puff INHALATION RT-Q6H PRN 09/26/19 02/27/25 History Inhaler] Diphenoxylate HCl/Atropine 1 tab PO TID PRN 06/21/24 02/27/25 History [Lomotil 2.5-0.025 mg Tablet] Famotidine [Pepcid] 40 mg PO HS 06/21/24 02/27/25 History Metoprolol Succinate (ER) [Toprol 50 mg PO HS 06/21/24 02/27/25 History XL] Venlafaxine HCl ER [Effexor XR] 75 mg PO HS 06/21/24 02/27/25 History Venlafaxine HCl ER [Effexor XR] 150 mg PO HS 06/21/24 02/27/25 History ALPRAZolam [Xanax] 0.5 mg PO DAILY PRN 02/23/25 02/27/25 History Amitriptyline HCl 50 mg PO HS 02/23/25 02/27/25 History Colestipol HCl 1 gm PO DIRECTED 02/23/25 02/27/25 History Allergies Allergy/AdvReac Type Severity Reaction Status Date / Time ceftriaxone [From Rocephin] Allergy Anaphylaxis Verified 02/27/25 08:18 Surgical - Exam Vital Signs Temp Pulse Resp BP Pulse Ox 97.0 F L 82 16 127/91 98 02/27/25 08:22 02/27/25 08:22 02/27/25 08:22 02/27/25 08:22 02/27/25 08:22 Physical exam: General: Well-developed, well-nourished HEENT: Normocephalic, sclerae nonicteric Abdomen: Nontender, nondistended Extremities: No edema Neuro: Alert and oriented Assessment and Plan (1) Colon cancer screening Narrative/Plan: Will proceed with colonoscopy at this time. Current Visit: Yes Status: Acute Code(s): Z12.11 - ENCOUNTER FOR SCREENING FOR MALIGNANT NEOPLASM OF COLON SNOMED Code(s): 340497172
--- NOTE | 2025-02-27 09:26 | P.PCN ---
Date of Procedure: 02/27/25 Procedure(s) Performed: PREOPERATIVE DIAGNOSIS: Colon cancer screening with history of polyps POSTOPERATIVE DIAGNOSIS: Diverticulosis tortuous colon PROCEDURE: Colonoscopy ANESTHESIA: MAC SURGEON: José Torres M.D. SPECIMENS: None ENDOSCOPIC PROCEDURE: The patient was placed on the endoscopy table in the left decubitus position. The Olympus colonoscope was inserted into the anus and passed under direct visualization to the proximal ascending colon. I could see the cecum from a distance. No abnormalities were identified. We could not get into the cecal base to see the base of the cecum well because of significant tortuosity. There were no neoplastic inflammatory or polypoid lesions througho ut the cecum, ascending, transverse, descending, sigmoid and rectum. There was mild scattered diverticulosis noted. Digital rectal examination was normal. The patient was taken to the recovery room in stable condition per anesthesia guidelines. RECOMMENDATIONS: Resume diet. Repeat colonoscopy 5 to 7 years.
[2025-02-27 09:48] VITALS: RESP 17
[2025-02-27 10:11] VITALS: BP 104/64; PULSE 70
== END 2025-02-27 10:13 | disposition home or self-care (01) ==
LOC: ORWHC2ENDO 07:51
PROVIDERS: ATTEND Surgery
DX: Z12.11 Encounter for screening for malignant neoplasm of colon (principal); K57.30 Diverticulosis of large intestine without perforation or abscess without bleeding; K58.9 Irritable bowel syndrome, unspecified; M79.7 Fibromyalgia; M06.9 Rheumatoid arthritis, unspecified; F32.A Depression, unspecified; F41.9 Anxiety disorder, unspecified; E03.9 Hypothyroidism, unspecified; J45.909 Unspecified asthma, uncomplicated; Z86.0100 Personal history of colon polyps, unspecified; Z88.1 Allergy status to other antibiotic agents; Z90.49 Acquired absence of other specified parts of digestive tract; Z90.89 Acquired absence of other organs; Z98.51 Tubal ligation status; Z79.51 Long term (current) use of inhaled steroids; Z79.899 Other long term (current) drug therapy; Z79.890 Hormone replacement therapy
CPT/HCPCS: 81025; 45378; J2405; J2704